=== PATIENT | male | born 1940 | race Caucasian/White ===

== ENCOUNTER 2016-11-20 13:20 | Emergency (ER) | payer MEDICARE, BC ==
[2016-11-20 15:59] VITALS: BP 116/70
--- NOTE | 2016-11-20 16:12 | UC ---
Lower Extremity/Ankle HPI - HPI Summary HPI Summary: complaint of right heel pain feel like he stepped on a piece of glass or a splinter can see a black dot omn jhis foot started approx 1 month ago sometimes catches it on a rug intermittent pain 2x day non radiating aching pain in heel - History of Current Complaint Chief Complaint: UCGeneralIllness Stated Complaint: RIGHT FOOT COMPLAINT Time Seen by Provider: 11/20/16 16:06 - Allergies/Home Medications Allergies/Adverse Reactions: Allergies Allergy/AdvReac Type Severity Reaction Status Date / Time No Known Allergies Allergy Verified 11/20/16 15:59 PMH/Surg Hx/FS Hx/Imm Hx Previously Healthy: Yes Endocrine History Of: Denies: Diabetes, Thyroid Disease Cardiovascular History Of: Reports: Cardiac Disorders - afib, Hypertension Denies: Pacemaker/ICD Respiratory History Of: Denies: COPD, Asthma GI/ History Of: Denies: Ulcer, Renal Disease Other History Of: Negative For: Anticoagulant Therapy - Surgical History Surgical History: Yes Surgery Procedure, Year, and Place: karely we[facility] rt knee replacement,2004 needed I+D for infection. left ankle repair after fracture; 2013 orthopedic. [facility] SURGERY LUMBAR DECOMPRESSION L2-L5 07/19 - Family History Known Family History: Positive: Hypertension - father Negative: Cardiac Disease, Diabetes - Social History Occupation: Retired Alcohol Use: Rare Alcohol Amount: 1 DRINK/MONTH Substance Use Type: None Smoking Status (MU): Former Smoker When Did the Patient Quit Smoking/Using Tobacco: 05/05/1977 - Immunization History Most Recent Tetanus Shot: up to date Review of Systems Constitutional: Negative Skin: Other - foreign object in right heel Eyes: Negative ENT: Negative Respiratory: Negative Cardiovascular: Negative Gastrointestinal: Negative Genitourinary: Negative Motor: Negative Neurovascular: Negative Musculoskeletal: Negative Neurological: Negative Psychological: Negative All Other Systems Reviewed And Are Negative: Yes Physical Exam Triage Information Reviewed: Yes Appearance: No Pain Distress, Well-Nourished, Thin Vital Signs: Initial Vital Signs Temp 98.8 F 11/20/16 15:51 Pulse 78 11/20/16 15:51 Resp 20 11/20/16 15:51 BP 116/70 11/20/16 15:51 Eyes: Positive: Conjunctiva Clear ENT: Positive: Pharynx normal, TMs normal. Negative: Nasal congestion Neck: Positive: No Lymphadenopathy Respiratory: Positive: Lungs clear, Normal breath sounds, No respiratory distress Cardiovascular: Positive: RRR, No Murmur Abdomen Description: Positive: Nontender, Soft Bowel Sounds: Positive: Present Musculoskeletal: Positive: No Edema Neurological: Positive: Alert Psychological Exam: Normal Skin: Positive: Other - right heel - small splinter in foot approx 3 mm- removed with splinter foceps Lower Extremity Course/Dx - Course Course Of Treatment: exam completed. splinter removed with splinter forceps pt tolerated well. no antibiotic needed as no s/s of cellulitis. followup with PCP as needed - Differential Dx/Diagnosis Differential Diagnosis/HQI/PQRI: Other Provider Diagnoses: right heel foreign object Discharge - Discharge Plan Condition: Stable Disposition: HOME Patient Education Materials: Soft Tissue Foreign Body (ED) Referrals: Klever Coats DO [Primary Care Provider] - Additional Instructions: keep foot clean and dry replace bandage everyday and apply bacitracin if you notice any increase in pain, swelling, redness please followup with your primary care provider for followup treatment.
== END 2016-11-20 16:31 | disposition home or self-care (01) ==
LOC: UCCORT 13:20
DX: S90.851A Superficial foreign body, right foot, initial encounter (principal); W45.8XXA Other foreign body or object entering through skin, initial encounter; Y93.9 Activity, unspecified; Y92.9 Unspecified place or not applicable; Z87.891 Personal history of nicotine dependence
CPT/HCPCS: 99211; G0463

== ENCOUNTER 2016-12-09 15:34 | Emergency (ER) | payer MEDICARE, BC ==
[2016-12-09 18:43] VITALS: BP 142/81
--- NOTE | 2016-12-09 19:23 | UC ---
Ear Complaint HPI - HPI Summary HPI Summary: pt c/o right ear pain that is intermittent. began 2-3 days ago. - History of Current Complaint Chief Complaint: UCEar Stated Complaint: EAR PAIN Time Seen by Provider: 12/09/16 18:42 Hx Obtained From: Patient Onset/Duration: Sudden Onset, Lasting Days Severity Initially: Mild Severity Currently: Mild - Allergies/Home Medications Allergies/Adverse Reactions: Allergies Allergy/AdvReac Type Severity Reaction Status Date / Time No Known Allergies Allergy Verified 12/09/16 18:44 Home Medications: Home Medications Acetaminophen TAB* [Tylenol TAB*] 650 mg PO Q4H PRN 12/09/16 [History Confirmed 12/09/16] PMH/Surg Hx/FS Hx/Imm Hx Previously Healthy: Yes Endocrine History Of: Denies: Diabetes, Thyroid Disease Cardiovascular History Of: Reports: Cardiac Disorders - afib, Hypertension Denies: Pacemaker/ICD Respiratory History Of: Denies: COPD, Asthma GI/ History Of: Denies: Ulcer, Renal Disease Other History Of: Negative For: Anticoagulant Therapy - Surgical History Surgical History: Yes Surgery Procedure, Year, and Place: [facility] rt knee replacement,2004 needed I+D for infection. left ankle repair after fracture; 2013 orthopedic. [facility] SURGERY LUMBAR DECOMPRESSION L2-L5 07/19 - Family History Known Family History: Positive: Hypertension - father Negative: Cardiac Disease, Diabetes - Social History Lives: Alone Alcohol Use: Rare Alcohol Amount: 1 DRINK/MONTH Substance Use Type: None Smoking Status (MU): Former Smoker When Did the Patient Quit Smoking/Using Tobacco: 05/05/1977 - Immunization History Most Recent Tetanus Shot: up to date Review of Systems Constitutional: Negative Skin: Negative Eyes: Negative ENT: Ear Ache - right Respiratory: Negative Cardiovascular: Negative Gastrointestinal: Negative Genitourinary: Negative Motor: Negative Neurovascular: Negative Musculoskeletal: Negative Neurological: Negative Psychological: Negative All Other Systems Reviewed And Are Negative: Yes Physical Exam Triage Information Reviewed: Yes Vital Signs: Initial Vital Signs Temp 98.9 F 12/09/16 18:39 Pulse 71 12/09/16 18:39 Resp 18 12/09/16 18:39 BP 142/81 12/09/16 18:39 Pulse Ox 98 12/09/16 18:39 Vital Signs Reviewed: Yes Eye Exam: Normal ENT Exam: Other ENT: Positive: Other: - left ear cerumen impaction Neck exam: Normal Respiratory Exam: Normal Cardiovascular Exam: Normal Musculoskeletal Exam: Normal Neurological Exam: Normal Psychological Exam: Normal Skin Exam: Normal Ear Complaint Course/Dx - Differential Dx/Diagnosis Differential Diagnosis/HQI/PQRI: Cerumen Impaction, Other Provider Diagnoses: right ear ache. left ear cerumen impaction Discharge - Discharge Plan Condition: Stable Disposition: HOME Patient Education Materials: Cerumen Impaction (ED), Earache (ED) Referrals: Klever Coats DO [Primary Care Provider] -
== END 2016-12-09 19:20 | disposition home or self-care (01) ==
LOC: UCCORT 15:34
DX: H92.01 Otalgia, right ear (principal); H61.22 Impacted cerumen, left ear; I48.91 Unspecified atrial fibrillation; I10 Essential (primary) hypertension; Z87.891 Personal history of nicotine dependence; Z96.651 Presence of right artificial knee joint
CPT/HCPCS: 99211; G0463

== ENCOUNTER 2017-07-22 11:42 | Emergency (ER) | payer MEDICARE, OTHER, BC ==
--- NOTE | 2017-07-22 14:01 | UC ---
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 he also is having trouble beding fingers on the left hand from the fall. is taking tylenol #3 - History of Current Complaint Chief Complaint: UCUpperExtremity Stated Complaint: KNEE/RIGHT SHOULDER PAIN-FELL FRI Time Seen by Provider: 07/22/17 13:27 Hx Obtained From: Patient Onset/Duration: Sudden Onset, Lasting Days - 1 Timing: Constant Onset Severity: Moderate Current Severity: Moderate - Allergy/Home Medications Allergies/Adverse Reactions: Allergies Allergy/AdvReac Type Severity Reaction Status Date / Time No Known Allergies Allergy Verified 07/22/17 13:17 PMH/Surg Hx/FS Hx/Imm Hx Previously Healthy: Yes Other History Of: Negative For: Anticoagulant Therapy - Surgical History Surgical History: Yes Surgery Procedure, Year, and Place: karely pr rt knee replacement,2004 needed I+D for infection. left ankle repair after fracture; 2013 orthopedic. [facility] SURGERY LUMBAR DECOMPRESSION L2-L5 07/19. cardiac ablation - Family History Known Family History: Positive: Hypertension - father Negative: Cardiac Disease, Diabetes - Social History Alcohol Use: None Alcohol Amount: 1 DRINK/MONTH Substance Use Type: None Smoking Status (MU): Former Smoker Type: Cigarettes When Did the Patient Quit Smoking/Using Tobacco: 05/05/1977 - Immunization History Most Recent Tetanus Shot: up to date Review of Systems Constitutional: Negative Skin: Other - musltiple abraisons Eyes: Negative ENT: Other - nose pain Respiratory: Negative Cardiovascular: Negative Gastrointestinal: Negative Genitourinary: Negative Motor: Negative Neurovascular: Negative Musculoskeletal: Arthralgia, Decreased ROM, Myalgia Neurological: Negative Psychological: Negative Is Patient Immunocompromised?: No All Other Systems Reviewed And Are Negative: Yes Physical Exam Triage Information Reviewed: Yes Appearance: Well-Appearing, Well-Nourished, Pain Distress Vital Signs: Initial Vital Signs Temp 98.3 F 07/22/17 13:19 Pulse 87 07/22/17 13:19 Resp 16 07/22/17 13:19 BP 105/65 07/22/17 13:19 Pulse Ox 95 07/22/17 13:19 Vital Signs Reviewed: Yes Eye Exam: Normal Eyes: Positive: Conjunctiva Clear ENT: Positive: Pharynx normal, Nasal congestion Dental Exam: Normal Neck exam: Normal Neck: Positive: Supple, Nontender, No Lymphadenopathy Respiratory Exam: Normal Respiratory: Positive: Chest non-tender, Lungs clear, Normal breath sounds Cardiovascular Exam: Normal Cardiovascular: Positive: RRR, No Murmur, Pulses Normal Abdominal Exam: Normal Abdomen Description: Positive: Nontender, No Organomegaly, Soft Bowel Sounds: Positive: Present Musculoskeletal: Positive: Strength Limited @ - in right left and left hand, ROM Limited @ - in right shoulder, Edema @ - around the bridge of the nose, Other: - mid right femur pain, facial pain Neurological Exam: Normal Psychological Exam: Normal Skin Exam: Normal Course/Dx - Course Course Of Treatment: hx obtained, exam performed ,meds reviewed, xrays obtained , patient has taken pain med prior to arrival. - Differential Dx - Multi-Symptom Provider Diagnoses: facial abrasions. left middle finger pain. right thigh pain. right shoulder contusion Discharge - Discharge Plan Condition: Stable Disposition: HOME Patient Education Materials: Shoulder Pain (ED), Finger Fracture (ED) Additional Instructions: 1.[place]oulder, - pain medications, heat the shoulder, work through the Range of motion 2. Finger - keep the splint on for the next 2 weeks, at this point I am calling it a chip fracture of the distal joint, if the radiologist reads it differently I will let you know 3. Femur, o sign of fracture, heat to the area and stretch 4. Face xray did not show sign of fracture, neosporin to the abrasions on the face, follow up if pain persists.
[2017-07-22 15:19] VITALS: BP 103/68
--- NOTE | 2017-07-22 16:34 | RAD ---
Indication: RIGHT lower extremity pain post fall. RIGHT knee replacement. Comparison: No relevant prior exams available on the [facility] for comparison. Technique: AP and lateral views RIGHT femur. Report: RIGHT knee prosthesis in place without evidence for periprosthetic fracture. Mild periprosthetic lucency at the tibial plateau interface with the prosthesis which appears chronic. No compelling evidence for acute prosthesis loosening. Negative for femur fracture. Peripheral vascular calcifications. Unremarkable soft tissue contours. IMPRESSION: No evidence for RIGHT femur fracture. Periprosthetic lucency at the interface of the tibial component of the knee prosthesis is likely chronic. Correlation with prior exams suggested to assess for stability. No relevant prior exams are available on the [facility].
--- NOTE | 2017-07-22 16:36 | RAD ---
Indication: RIGHT shoulder pain post fall. Comparison: January 07, 2013 Technique: AP radiograph of the RIGHT shoulder. Report: Normal acromioclavicular and glenohumeral joint alignment in the AP projection. Large inferior acromial bone spur and chronic remodeling favoring chronic rotator cuff tear. Osteoarthritis at the acromioclavicular and glenohumeral joints. No fracture evident. IMPRESSION: Limited single view RIGHT shoulder exam remarkable for acromioclavicular and glenohumeral joint osteoarthritis and stigmata of chronic rotator cuff tear. No fracture or gross articular malalignment evident in the AP projection.
--- NOTE | 2017-07-22 16:38 | RAD ---
Indication: Trauma to the nose; fall. Comparison: No relevant prior exams available on the [facility] PACS for comparison. Technique: AP, Dejesus, lateral, SMV images of the facial bones. Report: The orbital margins and zygomatic arches appear intact. The tip of the nasal bones is not included within the [id number] on the lateral image limiting assessment. The visualized nasal bones appear intact. Normally located senile morphology mandible without evidence for fracture. Normally aerated paranasal sinuses. Rightward deviation of the nasal septum. IMPRESSION: Limited exam without visualized facial fracture.
--- NOTE | 2017-07-22 16:42 | RAD ---
Indication: LEFT hand pain post fall. Comparison: January 30, 2007 Technique: AP and lateral views LEFT hand. Report: Negative for fracture or dislocation. 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 Severe joint space narrowing, osteophytosis, and subchondral sclerosis and cystic change at the basal joint of the thumb including the articulation with the radial margin of the base of the second metacarpal. Mild soft tissue swelling at the wrist and hand. IMPRESSION: Negative for fracture. Osteoarthritis with significant progression over the 2006 exam.
== END 2017-07-22 16:13 | disposition home or self-care (01) ==
LOC: UCCORT 11:42
DX: S00.81XA Abrasion of other part of head, initial encounter (principal); S40.011A Contusion of right shoulder, initial encounter; W01.0XXA Fall on same level from slipping, tripping and stumbling without subsequent striking against object, initial encounter; Y93.01 Activity, walking, marching and hiking; Y92.89 Other specified places as the place of occurrence of the external cause; M79.651 Pain in right thigh; M79.645 Pain in left finger(s); Z96.651 Presence of right artificial knee joint; Z87.891 Personal history of nicotine dependence
CPT/HCPCS: 70150; 99213; G0463

== ENCOUNTER 2017-12-27 19:51 | Inpatient (IN) | payer MEDICARE, BC ==
--- NOTE | 2017-12-27 21:20 | RAD ---
INDICATION: Knee pain COMPARISON: Right femur July 22, 2017 TECHNIQUE: AP, lateral, and sunrise were obtained. FINDINGS: There is right knee arthroplasty. Both femoral and tibial components appear well seated. There is no evidence of a joint effusion. There are vascular calcifications. IMPRESSION: RIGHT KNEE ARTHROPLASTY.
[2017-12-27] MEDS ORDERED: Morphine INJ* 4 MG/ML 1 ML SYRINGE (NEW SYRINGE VERSION) IM ONE ×2 (22:11→23:31)
[2017-12-27] MEDS ORDERED: Ondansetron ODT TAB* 4 MG PO ONE (22:12)
[2017-12-28 02:06] LABS: ABS Basophils 0 10^3/ul (0-0.2); ABS Eosinophils 0.2 10^3/ul (0-0.6); ABS Lymphocytes 1.9 10^3/ul (1.0-4.8); ABS Nucleated RBC 0 10^3/ul; Eosinophil % 1.5 % (0-6); Hematocrit 43 % (42-52); Hemoglobin 14.4 g/dl (14.0-18.0); Mean Corpuscular HGB Conc 34 g/dl (31-36); Mean Corpuscular Hemoglobin 30 pg (27-31); Mean Corpuscular Volume 91 fL (80-94); Mean Platelet Volume 9 um3 (7.4-10.4); Nucleated Red Blood Cells % 0; Platelet Count 128 10^3/ul (150-450); Red Blood Count 4.72 10^6/ul (4.0-5.4); Red Cell Distribution Width 13 % (10.5-15); White Blood Count 10.2 10^3/ul (3.5-10.8)
[2017-12-28 02:20] LABS: EGFR Non-African American 95.4 (>60)
[2017-12-28] MEDS ORDERED: Ondansetron INJ* 2 MG/ML VIAL IV PRN (02:23)
[2017-12-28] MEDS ORDERED: Albuterol 2.5 MG/3 ML NEB.SOL* (0.083%) INH PRN (02:23)
[2017-12-28] MEDS ORDERED: Melatonin (NF) 3 MG TAB PO PRN (02:23)
[2017-12-28] MEDS ORDERED: fentaNYL* 50 MCG/ML 2 ML VIAL (100 MCG VIAL) IV SLOW PU PRN (02:23)
--- NOTE | 2017-12-28 02:25 | HP ---
H&P (Free Text) History and Physical: PCP: Anton Rodriguez MD Date/Time: 12/28/2017214 CC: intractable R knee pain s/p fall HPI: Mr Ernandez is a 77YO male HX R TKA 2005 & AFIB on rivaroxaban who reports standing in his kitchen putting things away when he suddenly felt a "click" in his R knee which then gave out causing him to fall. He was unable to stand and crawled to a phone to call his son who in turn called EMS. He denies other prodromal symptoms, specifically chest pain, SOB, palpitations, light-headedness , or other issues. His pain has not been able to be adequately controlled in the ED to allow him to ambulate and be discharged. XRY R knee is negative for acute finding. PMedHx HTN AFIB Ambulatory Orders Losartan TAB* [Cozaar TAB*] 50 mg PO DAILY 06/11/15 Metoprolol Succinate XL TAB* [Toprol XL TAB*] 50 mg PO BID 06/11/15 Rivaroxaban TAB(*) [Xarelto (NF)] 20 mg PO DAILY 07/29/15 Acetaminop/Codeine 30 MG TAB* [Tylenol/Codeine 30 MG TAB*] 1 tab PO Q4H PRN MDD 6 07/12/17 Allergies No Known Allergies Allergy (Verified 10/11/17 10:53) PSurgHx tonsillectomy L spine surgery R TKA SocHx: quit smoking 1976, 2 alcoholic drinks monthly, no recreational drugs; lives alone; retired [employer] architect; full code status FamHx: Father passed at 65 2nd ruptured AAA. Brother passed at 33 2nd Hodgkin's lymphoma. Sister passed at 54 2nd breast CA. ROS: as above, otherwise reviewed and all were negative vitals: Vital Signs Temp 37.3 C 12/28/17 03:51 Pulse 64 12/28/17 03:51 Resp 18 12/28/17 04:07 BP 159/79 12/28/17 03:51 Pulse Ox 92 12/28/17 03:51 Intake & Output 12/27/17 12/27/17 12/28/17 11:59 23:59 11:59 Weight 99.79 kg 102.467 kg Constitutional: NAD, normally developed, obese white male HEENM: atraumatic; sclera/conjunctiva: anicteric/clear; hearing: clinically intact; oropharynx: clear, mucosa moist Neck: soft tissue: non-tender; thyroid: normal Pulmonary: clear to auscultation bilaterally, good aeration, no accessory muscle use CV: RR/RR, normal S1S2, no carotid bruit, no jugular venous distention, 2+ B DP/ PT, no edema Abdominal: soft, non-distended, non-tender, no rebound/guarding/rigidity, normoactive bowel sounds, no hepatosplenomegaly or masses, no costovertebral angle tenderness Musculoskeletal: general: grossly intact; gait: non-ambulatory 2nd pain; R knee with minimal active ROM 2nd pain, passive ROM is better with ability to achieve full extension but only 90 degrees of flexion, the R knee joint is swollen without warmth or erythema Integumental: normal appearance and texture of exposed skin Psychiatric orientation: AA&O to PPS affect: calm mood: cooperative/pleasant eye contact: good content: reliable responses: timely insight: good Testing: Lab Results 12/28/17 12/28/17 Range/Units 01:55 01:55 WBC 10.2 (3.5-10.8) 10^3/ul RBC 4.72 (4.0-5.4) 10^6/ul Hgb 14.4 (14.0-18.0) g/dl Hct 43 (42-52) % MCV 91 (80-94) fL MCH 30 (27-31) pg MCHC 34 (31-36) g/dl RDW 13 (10.5-15) % Plt Count 128 L (150-450) 10^3/ul MPV 9 (7.4-10.4) um3 Neut % (Auto) 68.7 (38-83) % Lymph % (Auto) 19.0 L (25-47) % [place] % (Auto) 10.3 H (0-7) % Eos % (Auto) 1.5 (0-6) % Baso % (Auto) 0.5 (0-2) % Absolute Neuts (auto) 7.0 (1.5-7.7) 10^3/ul Absolute Lymphs (auto) 1.9 (1.0-4.8) 10^3/ul Absolute Monos (auto) 1.0 H (0-0.8) 10^3/ul Absolute Eos (auto) 0.2 (0-0.6) 10^3/ul Absolute Basos (auto) 0 (0-0.2) 10^3/ul Absolute Nucleated RBC 0 10^3/ul Nucleated RBC % 0 Sodium 136 (133-145) mmol/L Potassium 4.1 (3.5-5.0) mmol/L Chloride 101 (101-111) mmol/L Carbon Dioxide 31 (22-32) mmol/L Anion Gap 4 (2-11) mmol/L BUN 13 (6-24) mg/dL Creatinine 0.79 (0.67-1.17) mg/dL Est GFR ( Amer) 122.6 (>60) Est GFR (Non-Af Amer) 95.4 (>60) BUN/Creatinine Ratio 16.5 (8-20) Glucose 97 (70-100) mg/dL Calcium 9.1 (8.6-10.3) mg/dL Total Bilirubin 1.00 (0.2-1.0) mg/dL AST 23 (13-39) U/L ALT 21 (7-52) U/L Alkaline Phosphatase 49 (34-104) U/L Total Protein 6.7 (6.4-8.9) g/dL Albumin 3.7 (3.2-5.2) g/dL Globulin 3.0 (2-4) g/dL Albumin/Globulin Ratio 1.2 (1-3) XRY R knee, personally reviewed: FINDINGS: There is right knee arthroplasty. Both femoral and tibial components appear well seated. There is no evidence of a joint effusion. There are vascular calcifications. Impression: 77M presenting with traumatic R knee pain & swelling in the setting of rivaroxaban for AFIB, suspect acute hemarthosis DIAGNOSIS & PLAN Primary intractable R knee pain : suspect acute hemarthrosis : pain control : recommend consulting Malcolm Saleem MD orthopedic surgery who performed the TKA in AM : PT evaluation : supportive care Secondary HTN : continue losartan & metoprolol AFIB : continue rivaroxaban & metoprolol Admission Rational: observation for intractable knee pain DVTp: continue rivaroxaban Code Status: full HCP: children
[2017-12-28] MEDS ORDERED: NS 0.9% 1000 ML* 1,000 ML IV SCH (02:30)
--- NOTE | 2017-12-28 03:12 | ED ---
Houston Mckeon Angela, scribed for Nilay Cesar on 12/27/17 at 2018 . Adult Trauma - HPI Summary HPI Summary: This pt is a 77 y/o male presenting to [facility] via EMS c/o right knee pain. Pt reports he was doing dishes today when he heard a "pop" in his right knee and subsequently he fell. Denies head strike or LOC. Pt states that he had a total right knee replacement in [address] Saleem. He uses a cane at baseline. Pt has chronic back pain for which he goes to pain management. - History of Current Complaint Stated Complaint: FALL/RT KNEE INJURY Time Seen by Provider: 12/27/17 20:07 Hx Obtained From: Patient Mechanism of Injury: Fall Ambulatory at the Scene: Yes Loss of Consciousness: no loss of consciousness Onset/Duration: Started Hours Ago, Traumatic, Still Present Current Severity: Moderate Location: Other - right knee Aggravating Factor(s): Movement Alleviating Factor(s): Rest Associated Signs & Symptoms: Positive: Negative - Allergy/Home Medications Allergies/Adverse Reactions: Allergies Allergy/AdvReac Type Severity Reaction Status Date / Time No Known Allergies Allergy Verified 10/11/17 10:53 PMH/Surg Hx/FS Hx/Imm Hx Endocrine/Hematology History: Denies: Hx Anticoagulant Therapy, Hx Diabetes, Hx Thyroid Disease Cardiovascular History: Reports: Hx Hypertension, Hx Valvular Heart Disease, Other Cardiovascular Problems/Disorders - on xarelto Denies: Hx Pacemaker/ICD Respiratory History: Denies: Hx Asthma, Hx Chronic Obstructive Pulmonary Disease (COPD) GI History: Reports: Other GI Disorders - constipation Denies: Hx Ulcer History: Denies: Hx Dialysis, Hx Renal Disease Musculoskeletal History: Reports: Hx Arthritis, Hx Back Problems - spinal stenosis, Other Musculoskeletal History - right knee infection/complications after replacement Denies: Hx Gout, Hx Osteoporosis Sensory History: Reports: Hx Contacts or Glasses Denies: Hx Hearing Aid Comment Only: Hx Cataracts - bilaterally removed Opthamlomology History: Reports: Hx Contacts or Glasses Comment Only: Hx Cataracts - bilaterally removed Psychiatric History: Denies: Hx Panic Disorder - Cancer History Hx Chemotherapy: No Hx Radiation Therapy: No - Surgical History Surgery Procedure, Year, and Place: karely weber rt knee replacement,2004 needed I+D for infection. left ankle repair after fracture; 2013 orthopedic. [facility] SURGERY LUMBAR DECOMPRESSION L2-L5 9/14. 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 Denies: Hx Clostridium Difficile, Hx Hepatitis, Hx Human Immunodeficiency Virus (HIV), Hx Shingles, Hx Tuberculosis, Hx Known/Suspected VRE, Hx Known/ Suspected VRSA, History Other Infectious Disease - Family History Known Family History: Positive: Hypertension - father Negative: Cardiac Disease, Diabetes - Social History Alcohol Use: Weekly Alcohol Amount: 1 DRINK/MONTH Substance Use Type: Reports: None Smoking Status (MU): Former Smoker Type: Cigarettes Review of Systems Negative: Fever, Chills Eyes: Negative ENT: Negative Cardiovascular: Negative Respiratory: Negative Musculoskeletal: Other - right knee pain Negative: Headache All Other Systems Reviewed And Are Negative: Yes Physical Exam - Summary Physical Exam Summary: Appearance: Well appearing, no pain distress Skin: warm, dry, reflects adequate perfusion Head/face: normal Eyes: EOMI, PER ENT: normal Neck: supple, nontender Respiratory: CTA, breath sounds present Cardiovascular: RRR, pulses symmetrical Abdomen: nontender, soft Bowel: present Musculoskeletal: Tenderness and swelling of the right knee. There is restricted ROM. Healed scar on the anterior aspect of the right knee. No neurovascular deficits on right knee. Neuro: normal, sensory motor intact, A&Ox3. Triage Information Reviewed: Yes Vital Signs On Initial Exam: Initial Vitals Temp Pulse Resp BP Pulse Ox 98.4 F 55 16 154/87 94 12/27/17 20:15 12/27/17 20:15 12/27/17 20:15 12/27/17 20:15 12/27/17 20:15 Vital Signs Reviewed: Yes Diagnostics - Vital Signs Vital Signs Temp Pulse Resp BP Pulse Ox 12/27/17 23:40 16 12/27/17 22:29 16 12/27/17 20:30 55 22 148/82 93 12/27/17 20:15 98.4 F 58 19 170/90 96 - Laboratory Lab Results: Lab Results 12/28/17 12/28/17 Range/Units 01:55 01:55 WBC 10.2 (3.5-10.8) 10^3/ul RBC 4.72 (4.0-5.4) 10^6/ul Hgb 14.4 (14.0-18.0) g/dl Hct 43 (42-52) % MCV 91 (80-94) fL MCH 30 (27-31) pg MCHC 34 (31-36) g/dl RDW 13 (10.5-15) % Plt Count 128 L (150-450) 10^3/ul MPV 9 (7.4-10.4) um3 Neut % (Auto) 68.7 (38-83) % Lymph % (Auto) 19.0 L (25-47) % [place] % (Auto) 10.3 H (0-7) % Eos % (Auto) 1.5 (0-6) % Baso % (Auto) 0.5 (0-2) % Absolute Neuts (auto) 7.0 (1.5-7.7) 10^3/ul Absolute Lymphs (auto) 1.9 (1.0-4.8) 10^3/ul Absolute Monos (auto) 1.0 H (0-0.8) 10^3/ul Absolute Eos (auto) 0.2 (0-0.6) 10^3/ul Absolute Basos (auto) 0 (0-0.2) 10^3/ul Absolute Nucleated RBC 0 10^3/ul Nucleated RBC % 0 Sodium 136 (133-145) mmol/L Potassium 4.1 (3.5-5.0) mmol/L Chloride 101 (101-111) mmol/L Carbon Dioxide 31 (22-32) mmol/L Anion Gap 4 (2-11) mmol/L BUN 13 (6-24) mg/dL Creatinine 0.79 (0.67-1.17) mg/dL Est GFR ( Amer) 122.6 (>60) Est GFR (Non-Af Amer) 95.4 (>60) BUN/Creatinine Ratio 16.5 (8-20) Glucose 97 (70-100) mg/dL Calcium 9.1 (8.6-10.3) mg/dL Total Bilirubin 1.00 (0.2-1.0) mg/dL AST 23 (13-39) U/L ALT 21 (7-52) U/L Alkaline Phosphatase 49 (34-104) U/L Total Protein 6.7 (6.4-8.9) g/dL Albumin 3.7 (3.2-5.2) g/dL Globulin 3.0 (2-4) g/dL Albumin/Globulin Ratio 1.2 (1-3) Result Diagrams: 12/28/17 01:55 12/28/17 01:55 Lab Statement: Any lab studies that have been ordered have been reviewed, and results considered in the medical decision making process. - Radiology Right knee XR Xray Interpretation: No Acute Changes - IMPRESSION: Right knee arthroplasty. Dr. Cesar has reviewed this radiology report. Radiology Interpretation Completed By: Radiologist Re-Evaluation - Re-Evaluation First Eval Re-Evaluation Time: 21:54 Comment: I reviewed the knee XR with the pt. Pt states he is unable to walk. He reports he lives alone and has stairs at home. Will consult hospitalist. Adult Trauma Course/Dx - Course Course Of Treatment: Pt is a 77 y/o male, with right knee total replacement, who presents with right knee pain today and a fall due to his knee giving out. Right knee XR was obtained. XR is negative for fractures or dislocation. On re- evaluation, pt states he is unable to walk. He reports he lives alone and has stairs at home. Will consult hospitalist. In the ED course the pt was given morphine and zofran. Pt failed his road test after medications. I discussed pt care with Dr. Hassan, hospitalist, who has agreed to admit the pt. - Diagnoses Differential Diagnosis/HQI/PQRI: Positive: Contusion(s), Fracture, Hematoma(s), Sprain Provider Diagnoses: Right knee pain, Unable to ambulate, Fall - Physician Notifications Discussed Care Of Patient With: Guy Hassan Time Discussed With Above Provider: 01:32 Instructed by Provider To: Other - I discussed pt care with Dr. Hassan, hospitalist, who has agreed to admit the pt. Discharge - Discharge Plan Condition: Stable Disposition: ADMITTED TO [facility] The documentation as recorded by the Houston sagastume Angela accurately reflects the service I personally performed and the decisions made by me, Nilay Cesar.
[2017-12-28] MEDS: oxyCODONE TAB* 5 MG TAB PO PRN ×3 (04:07→23:58)
[2017-12-28] MEDS: CMCS Melatonin (NF) 3 MG TAB PO PRN (04:08)
[2017-12-28] MEDS: Omeprazole CAP* 20 MG PO SCH (04:25)
[2017-12-28] MEDS: Rivaroxaban TAB(*) 20 MG TAB PO SCH (08:35)
[2017-12-28] MEDS: Docusate CAP* 100 MG PO SCH ×2 (08:35→22:05)
--- NOTE | 2017-12-28 11:08 | PN ---
Subjective Date of Service: 12/28/17 Interval History: Patient seen and examined. PT at bedside for evaluation. Patient unable to bear weight, states he is having extreme spasms running down both legs with accompanying paresthesias. No complaint of pain, however, patient states his legs give out and he is too weak to stand. Has hx of back surgery ( decompression with no instrumentation) in 2012 but noticed that weakness has been substantial and his legs keep buckling, not just on the right/arthroplasty side. Feels this is what contributed to his fall yesterday. Denies changes in bladder or bowel habits, no incontinence. Denies SOB, no n/v. Objective Active Medications: Albuterol (Ventolin 2.5 Mg/3 Ml Neb.Leanna*) 2.5 mg INH Q2H PRN PRN Reason: SOB/WHEEZING Docusate Sodium (Colace Cap*) 200 mg PO BID [facility] Last Admin: 12/28/17 08:35 Dose: 200 mg Fentanyl Citrate (Fentanyl*) 25 mcg IV SLOW PU Q2H PRN PRN Reason: PAIN Sodium Chloride (Ns 0.9% 1000 Ml*) 1,000 mls @ 75 mls/hr IV PER RATE [facility] Last Admin: 12/28/17 04:06 Dose: 75 mls/hr Melatonin (Melatonin (Nf)) 3 mg PO BEDTIME PRN; Protocol PRN Reason: Sleep Last Admin: 12/28/17 04:08 Dose: 3 mg Omeprazole (Prilosec Cap*) 20 mg PO DAILY@0600 [facility] Last Admin: 12/28/17 04:25 Dose: 20 mg Ondansetron HCl (Zofran Inj*) 4 mg IV Q6H PRN PRN Reason: NAUSEA Oxycodone HCl (Roxycodone Tab*) 10 mg PO Q4H PRN PRN Reason: PAIN Last Admin: 12/28/17 04:07 Dose: 10 mg Rivaroxaban (Xarelto(*)) 20 mg PO DAILY [facility] Last Admin: 12/28/17 08:35 Dose: 20 mg Tramadol HCl (Ultram*) 50 mg PO Q6H PRN PRN Reason: PAIN Vital Signs - 8 hr 12/28/17 12/28/17 12/28/17 03:13 03:45 03:51 Temperature 97.9 F 99.2 F 99.2 F Pulse Rate 63 64 64 Respiratory 18 17 17 Rate Blood Pressure 156/82 159/79 159/79 (mmHg) O2 Sat by Pulse 97 92 92 Oximetry 12/28/17 12/28/17 12/28/17 04:07 07:19 08:29 Temperature 98.5 F Pulse Rate 70 Respiratory 18 20 16 Rate Blood Pressure 113/54 (mmHg) O2 Sat by Pulse 90 Oximetry Oxygen Devices in Use Now: None Appearance: Alert, NAD Ears/Nose/Mouth/Throat: NL Teeth, Lips, Gums, Mucous Membranes Moist Neck: NL Appearance and Movements; NL JVP, Trachea Midline Respiratory: Symmetrical Chest Expansion and Respiratory Effort, Clear to Auscultation Cardiovascular: NL Sounds; No Murmurs; No JVD Abdominal: NL Sounds; No Tenderness; No Distention Skin: - - edema right knee at baseline, no erythema Neurological: Alert and Oriented x 3, - - RLE quad weakness, bilateral LE general weakness Nutrition: Taking PO's Result Diagrams: 12/28/17 01:55 12/28/17 01:55 Additional Lab and Data: Lab Results 12/28/17 12/28/17 Range/Units 01:55 01:55 WBC 10.2 (3.5-10.8) 10^3/ul RBC 4.72 (4.0-5.4) 10^6/ul Hgb 14.4 (14.0-18.0) g/dl Hct 43 (42-52) % MCV 91 (80-94) fL MCH 30 (27-31) pg MCHC 34 (31-36) g/dl RDW 13 (10.5-15) % Plt Count 128 L (150-450) 10^3/ul MPV 9 (7.4-10.4) um3 Neut % (Auto) 68.7 (38-83) % Lymph % (Auto) 19.0 L (25-47) % [place] % (Auto) 10.3 H (0-7) % Eos % (Auto) 1.5 (0-6) % Baso % (Auto) 0.5 (0-2) % Absolute Neuts (auto) 7.0 (1.5-7.7) 10^3/ul Absolute Lymphs (auto) 1.9 (1.0-4.8) 10^3/ul Absolute Monos (auto) 1.0 H (0-0.8) 10^3/ul Absolute Eos (auto) 0.2 (0-0.6) 10^3/ul Absolute Basos (auto) 0 (0-0.2) 10^3/ul Absolute Nucleated RBC 0 10^3/ul Nucleated RBC % 0 Sodium 136 (133-145) mmol/L Potassium 4.1 (3.5-5.0) mmol/L Chloride 101 (101-111) mmol/L Carbon Dioxide 31 (22-32) mmol/L Anion Gap 4 (2-11) mmol/L BUN 13 (6-24) mg/dL Creatinine 0.79 (0.67-1.17) mg/dL Est GFR ( Amer) 122.6 (>60) Est GFR (Non-Af Amer) 95.4 (>60) BUN/Creatinine Ratio 16.5 (8-20) Glucose 97 (70-100) mg/dL Calcium 9.1 (8.6-10.3) mg/dL Total Bilirubin 1.00 (0.2-1.0) mg/dL AST 23 (13-39) U/L ALT 21 (7-52) U/L Alkaline Phosphatase 49 (34-104) U/L Total Protein 6.7 (6.4-8.9) g/dL Albumin 3.7 (3.2-5.2) g/dL Globulin 3.0 (2-4) g/dL Albumin/Globulin Ratio 1.2 (1-3) Diagnostic Imaging: Patient Name: FUAD ESTRADA Medical Record#: [id number] Ordering Physician: Nilay Cesar MD Acct.#: [id number] : 1940 Age: 77 Sex: M Location: EMERGENCY DEPARTMENT Exam Date: 12/27/172034 ADM Status: REG ER Order Information: KNEE RIGHT 4+ VWS Accession Number: [id number] CPT: 62882 INDICATION: Knee pain COMPARISON: Right femur July 22, 2017 TECHNIQUE: AP, lateral, and sunrise were obtained. FINDINGS: There is right knee arthroplasty. Both femoral and tibial components appear well seated. There is no evidence of a joint effusion. There are vascular calcifications. IMPRESSION: RIGHT KNEE ARTHROPLASTY. <Electronically signed by Robby Ram MD in OV> 12/27/172115 Dictated By: Robby Ram MD Dictated Date/Time: 12/27/172115 Transcribed Date/Time: 12/27/172100 Copy to: Assess/Plan/Problems-Billing Assessment: This is a 77 year old male patient with hx of OA, right TKA, s/p fall, now with low back spasms and paresthesias and inability to bear weight or ambulate unassisted. - Patient Problems (1) Fall from standing Code(s): W19.XXXA - UNSPECIFIED FALL, INITIAL ENCOUNTER SNOMED Code(s): 5626577 Comment: - Question if the weakness is coming from his right knee vs lumbar region, as patient states he has bilateral weakness and knee pain is resolved - Does have history of degenerative disc disease and decompression surgery in the past; will MRI lumbar spine with and without contrast to r/o cord compression/stenosis - Trial valium for spasms - Continue PT (2) Knee pain, right Code(s): M25.561 - PAIN IN RIGHT KNEE SNOMED Code(s): 79111406 Comment: - Pain resolved, left weith weakness and paresthesias - Xray as above, no acute findings. Prosthesis intact, no fracture or dislocation noted - Likely needs PT/rehab for quad weakness (3) Weakness of both lower extremities Code(s): R29.898 - OTH SYMPTOMS AND SIGNS INVOLVING THE MUSCULOSKELETAL SYSTEM SNOMED Code(s): 1227305 Comment: - Concern that culprit is his low back and not the knee given continued inability to bear weight, recent falls and inability to ambulate - MRI lumbar today (4) Radiculopathy of lumbar region Code(s): M54.16 - RADICULOPATHY, LUMBAR REGION SNOMED Code(s): 773934512 Comment: - Pronounced spasms and paresthesias with movement - Will trial valium and eval MRI, if stenosis or compression will start steroids and consult NS (5) Hypertension Code(s): I10 - ESSENTIAL (PRIMARY) HYPERTENSION SNOMED Code(s): 49003488 Comment: - Stable on losartan and metoprolol (6) Atrial fibrillation Code(s): I48.91 - UNSPECIFIED ATRIAL FIBRILLATION SNOMED Code(s): 71282882 Comment: - Stable on xarelto and metoprolol (7) DVT prophylaxis Code(s): NAM8370 - SNOMED Code(s): 232104253 Comment: - On xarelto (8) Full code status Code(s): Z78.9 - OTHER SPECIFIED HEALTH STATUS SNOMED Code(s): 915934139 Status and Disposition: Remain inpatient obs.
[2017-12-28] MEDS: Diazepam TAB(*) 5 MG PO PRN ×2 (14:13→22:05)
[2017-12-28] MEDS ORDERED: Gadoteridol* (CONTRAST) 279.3 MG/ML 10 ML IV ONE (15:46)
--- NOTE | 2017-12-28 17:14 | RAD ---
Indication: Prior lumbar discectomy. Inability to bear weight. Image sequences: Sagittal T1, T2, STIR, axial T1 and T2-weighted images of the lumbar spine were obtained. 20 mL of ProHance was injected and postcontrast sagittal and axial fat-suppressed T1-weighted images were repeated. The vertebral bodies appear normal in height. Heterogeneous bone marrow signal is noted consistent with conversion of yellow marrow to red marrow. Overall appearance does not appear to be significantly changed since November 24, 2014. At L5-S1 degenerative disc disease. Spondylitic ridge with broad-based protrusion is noted bilaterally. There is narrowing of the foramen bilaterally. This is unchanged from previous exam. At L4-L5 there is degenerative disc disease noted. There is a far right lateral disc protrusion which appears to impinge upon the right exiting nerve root. This appears to be similar to that seen on prior exam. Mild left foraminal stenosis is noted. At L3-L4 spondylitic ridge flattens the thecal sac. Facet arthropathy is noted. Broad-based disc protrusions appears to narrow both intervertebral foramen worse on the right than on the left. At L2-L3 degenerative disc disease is noted. Spondylitic ridge flattens the thecal sac. Mild to moderate facet hypertrophy is noted. At L1-L2 broad-based protrusion flattens the thecal sac. Moderate facet hypertrophy is noted. At T12-L1 disc space appears unremarkable. The postcontrast images demonstrate complete enhancement L1-L2. No evidence of increased signal is noted in the disc and this likely represents degenerative disc disease. No other areas of epidural enhancement is noted. IMPRESSION: Multilevel degenerative disc disease. There is enhancement at the L1-L2 endplates without definite evidence of increased signal of the disc consistent with degenerative changes. Multilevel degenerative disc disease with multiple areas of foraminal stenosis is present. Please see above for specific disc levels.
[2017-12-29] MEDS: Omeprazole CAP* 20 MG PO SCH (06:20)
[2017-12-29] MEDS: Diazepam TAB(*) 5 MG PO PRN (09:22)
[2017-12-29] MEDS: Docusate CAP* 100 MG PO SCH ×2 (09:22→21:25)
[2017-12-29] MEDS: Rivaroxaban TAB(*) 20 MG TAB PO SCH (09:22)
[2017-12-29] MEDS: oxyCODONE TAB* 5 MG TAB PO PRN ×3 (11:01→21:25)
[2017-12-29] MEDS ORDERED: Dexamethasone IV* 4 MG/ML 1 ML (4 MG) IV SLOW PU ONE ×2 (12:40→20:30)
--- NOTE | 2017-12-29 15:04 | PN ---
Subjective Date of Service: 12/29/17 Interval History: Patient seen and examined. Still unable to bear weight, reports significant weakness of legs with paresthesias R>L and pain described as "spasms" through the low back and lower extremities. Denies SOB, no chest pain, tolerating PO. PT and nursing notes reviewed. Objective Active Medications: Albuterol (Ventolin 2.5 Mg/3 Ml Neb.Leanna*) 2.5 mg INH Q2H PRN PRN Reason: SOB/WHEEZING Diazepam (Valium Tab(*)) 5 mg PO Q8H PRN PRN Reason: spasm Last Admin: 12/29/17 09:22 Dose: 5 mg Docusate Sodium (Colace Cap*) 200 mg PO BID [facility] Last Admin: 12/29/17 09:22 Dose: 200 mg Melatonin (Melatonin (Nf)) 3 mg PO BEDTIME PRN; Protocol PRN Reason: Sleep Last Admin: 12/28/17 04:08 Dose: 3 mg Omeprazole (Prilosec Cap*) 20 mg PO DAILY@0600 [facility] Last Admin: 12/29/17 06:20 Dose: 20 mg Ondansetron HCl (Zofran Inj*) 4 mg IV Q6H PRN PRN Reason: NAUSEA Oxycodone HCl (Roxycodone Tab*) 10 mg PO Q4H PRN PRN Reason: PAIN Last Admin: 12/29/17 11:01 Dose: 10 mg Rivaroxaban (Xarelto(*)) 20 mg PO DAILY [facility] Last Admin: 12/29/17 09:22 Dose: 20 mg Tramadol HCl (Ultram*) 50 mg PO Q6H PRN PRN Reason: PAIN Vital Signs - 8 hr 12/29/17 12/29/17 12/29/17 07:38 08:00 09:13 Temperature 99.5 F 98.0 F Pulse Rate 87 Respiratory 18 18 Rate Blood Pressure 150/69 (mmHg) O2 Sat by Pulse 91 Oximetry 12/29/17 12/29/17 12/29/17 09:22 11:01 11:23 Temperature Pulse Rate Respiratory 18 18 18 Rate Blood Pressure (mmHg) O2 Sat by Pulse Oximetry 12/29/17 11:39 Temperature 99.1 F Pulse Rate 103 Respiratory 18 Rate Blood Pressure 143/79 (mmHg) O2 Sat by Pulse 90 Oximetry Oxygen Devices in Use Now: None Appearance: Alert, somewhat anxious Eyes: No Scleral Icterus, PERRLA Ears/Nose/Mouth/Throat: NL Teeth, Lips, Gums, Mucous Membranes Moist Neck: Trachea Midline Respiratory: Symmetrical Chest Expansion and Respiratory Effort, Clear to Auscultation Cardiovascular: NL Sounds; No Murmurs; No JVD, RRR Abdominal: NL Sounds; No Tenderness; No Distention Extremities: No Edema, No Clubbing, Cyanosis Neurological: Alert and Oriented x 3, - - decreased tone RLE with weakness bilat of LE Nutrition: Taking PO's Result Diagrams: 12/28/17 01:55 12/28/17 01:55 Additional Lab and Data: Lab Results 12/28/17 12/28/17 Range/Units 01:55 01:55 WBC 10.2 (3.5-10.8) 10^3/ul RBC 4.72 (4.0-5.4) 10^6/ul Hgb 14.4 (14.0-18.0) g/dl Hct 43 (42-52) % MCV 91 (80-94) fL MCH 30 (27-31) pg MCHC 34 (31-36) g/dl RDW 13 (10.5-15) % Plt Count 128 L (150-450) 10^3/ul MPV 9 (7.4-10.4) um3 Neut % (Auto) 68.7 (38-83) % Lymph % (Auto) 19.0 L (25-47) % [place] % (Auto) 10.3 H (0-7) % Eos % (Auto) 1.5 (0-6) % Baso % (Auto) 0.5 (0-2) % Absolute Neuts (auto) 7.0 (1.5-7.7) 10^3/ul Absolute Lymphs (auto) 1.9 (1.0-4.8) 10^3/ul Absolute Monos (auto) 1.0 H (0-0.8) 10^3/ul Absolute Eos (auto) 0.2 (0-0.6) 10^3/ul Absolute Basos (auto) 0 (0-0.2) 10^3/ul Absolute Nucleated RBC 0 10^3/ul Nucleated RBC % 0 Sodium 136 (133-145) mmol/L Potassium 4.1 (3.5-5.0) mmol/L Chloride 101 (101-111) mmol/L Carbon Dioxide 31 (22-32) mmol/L Anion Gap 4 (2-11) mmol/L BUN 13 (6-24) mg/dL Creatinine 0.79 (0.67-1.17) mg/dL Est GFR ( Amer) 122.6 (>60) Est GFR (Non-Af Amer) 95.4 (>60) BUN/Creatinine Ratio 16.5 (8-20) Glucose 97 (70-100) mg/dL Calcium 9.1 (8.6-10.3) mg/dL Total Bilirubin 1.00 (0.2-1.0) mg/dL AST 23 (13-39) U/L ALT 21 (7-52) U/L Alkaline Phosphatase 49 (34-104) U/L Total Protein 6.7 (6.4-8.9) g/dL Albumin 3.7 (3.2-5.2) g/dL Globulin 3.0 (2-4) g/dL Albumin/Globulin Ratio 1.2 (1-3) Diagnostic Imaging: MRI LUMBAR SPINE Patient Name: FUAD ESTRADA Medical Record#: [id number] Ordering Physician: Kimberley Vazquez NP Acct.#: [id number] : 1940 Age: 77 Sex: M Location: [address] [place] [address] MEDICAL Exam Date: 12/28/17 1101 ADM Status: ADM Vibha Order Information: MRI LUMBAR SPINE W/WO Accession Number: [id number] CPT: 57946 Indication: Prior lumbar discectomy. Inability to bear weight. Image sequences: Sagittal T1, T2, STIR, axial T1 and T2-weighted images of the lumbar spine were obtained. 20 mL of ProHance was injected and postcontrast sagittal and axial fat-suppressed T1-weighted images were repeated. The vertebral bodies appear normal in height. Heterogeneous bone marrow signal is noted consistent with conversion of yellow marrow to red marrow. Overall appearance does not appear to be significantly changed since November 24, 2014. At L5-S1 degenerative disc disease. Spondylitic ridge with broad-based protrusion is noted bilaterally. There is narrowing of the foramen bilaterally. This is unchanged from previous exam. At L4-L5 there is degenerative disc disease noted. There is a far right lateral disc protrusion which appears to impinge upon the right exiting nerve root. This appears to be similar to that seen on prior exam. Mild left foraminal stenosis is noted. At L3-L4 spondylitic ridge flattens the thecal sac. Facet arthropathy is noted. Broad-based disc protrusions appears to narrow both intervertebral foramen worse on the right than on the left. At L2-L3 degenerative disc disease is noted. Spondylitic ridge flattens the thecal sac. Mild to moderate facet hypertrophy is noted. At L1-L2 broad-based protrusion flattens the thecal sac. Moderate facet hypertrophy is noted. At T12-L1 disc space appears unremarkable. The postcontrast images demonstrate complete enhancement L1-L2. No evidence of increased signal is noted in the disc and this likely represents degenerative disc disease. No other areas of epidural enhancement is noted. IMPRESSION: Multilevel degenerative disc disease. There is enhancement at the L1 -L2 endplates without definite evidence of increased signal of the disc consistent with degenerative changes. Multilevel degenerative disc disease with multiple areas of foraminal stenosis is present. Please see above for specific disc levels. XRAY RIGHT KNEE Patient Name: FUAD ESTRADA Medical Record#: [id number] Ordering Physician: Nilay Cesar MD Acct.#: [id number] : 1940 Age: 77 Sex: M Location: EMERGENCY DEPARTMENT Exam Date: 12/27/172034 ADM Status: REG ER Order Information: KNEE RIGHT 4+ VWS Accession Number: [id number] CPT: 95404 INDICATION: Knee pain COMPARISON: Right femur July 22, 2017 TECHNIQUE: AP, lateral, and sunrise were obtained. FINDINGS: There is right knee arthroplasty. Both femoral and tibial components appear well seated. There is no evidence of a joint effusion. There are vascular calcifications. IMPRESSION: RIGHT KNEE ARTHROPLASTY. <Electronically signed by Robby Ram MD in [place]> 12/27/172115 Dictated By: Robby Ram MD Dictated Date/Time: 12/27/172115 Transcribed Date/Time: 12/27/172100 Copy to: Assess/Plan/Problems-Billing Assessment: This is a 77 year old male patient with hx of OA, right TKA, s/p fall, now with low back spasms and paresthesias and inability to bear weight or ambulate unassisted. - Patient Problems (1) Fall from standing Code(s): W19.XXXA - UNSPECIFIED FALL, INITIAL ENCOUNTER SNOMED Code(s): 9272983 Comment: - Question if the weakness and fall is coming from his right knee vs lumbar region, as patient states he has bilateral weakness and knee pain is resolved - Fall precautions (2) Knee pain, right Code(s): M25.561 - PAIN IN RIGHT KNEE SNOMED Code(s): 78480160 Comment: - Pain resolved, left weith weakness and paresthesias - Xray as above, no acute findings. Prosthesis intact, no fracture or dislocation noted (3) Weakness of both lower extremities Code(s): R29.898 - OTH SYMPTOMS AND SIGNS INVOLVING THE MUSCULOSKELETAL SYSTEM SNOMED Code(s): 6275621 Comment: - MRI lumbar obtained, report as above - Consult to neurosurgery given hx of lumbar decompression and bilateral LE weakness, will trial IV decadron, continue valium PRN and pain meds - Continue PT if tolerated (4) Radiculopathy of lumbar region Code(s): M54.16 - RADICULOPATHY, LUMBAR REGION SNOMED Code(s): 302964537 Comment: - Pronounced spasms and paresthesias with movement - continue valium, decadron IV x1 dose, monitor for effect - appreciate recs from NS today (5) Hypertension Code(s): I10 - ESSENTIAL (PRIMARY) HYPERTENSION SNOMED Code(s): 47536464 Comment: - Stable on losartan and metoprolol (6) Atrial fibrillation Code(s): I48.91 - UNSPECIFIED ATRIAL FIBRILLATION SNOMED Code(s): 20597604 Comment: - Stable on xarelto and metoprolol (7) DVT prophylaxis Code(s): YTK4261 - SNOMED Code(s): 550455219 Comment: - On xarelto (8) Full code status Code(s): Z78.9 - OTHER SPECIFIED HEALTH STATUS SNOMED Code(s): 784552391 Status and Disposition: Remain inpatient pending NS consult. Counseling and/or Coordination of Care Minutes: coordinated with RUY Cabrera, neurosurgery and patient's family
--- NOTE | 2017-12-29 18:11 | CONSULT ---
Consult Consult: Neurosurgery Consult Date of Admission: 12/27/17 Date of Consult: 12/29/17 Reason for Consult: Lumbar radiculopathy Referring Provider: Kimberley Vazquez NP HPI: This is a 77 year old male with past medical history significant for HTN, atrial fibrillation, lumbar decompression and right knee arthroplasty who presented to the [facility] ED with complaint of right knee pain after a fall on . The patient states that he was standing at the sink doing dishes when he experienced a muscle spasm so severe that he fell onto his knees. He was unable to get up after the fall and crawled to the couch to call for help. Currently, the patient complains primarily of right knee pain and muscle spasms in the right knee and low back. The spasms are at times unprovoked and also worse with movement. He has not experienced this prior to . He denies pain radiating down the lower extremities. He denies numbness and tingling of the lower extremities. When he stands, he experiences severe spasm with weight bearing on the RLE, causing him to nearly fall. He is unable to localize whether the spasm is low back or in the RLE. He denies left lower extremity pain , weakness and numbness. He denies neck pain, numbness, tingling, weakness and pain in the bilateral upper extremities. Denies recent illness, fever, chills and nausea. He has a history of right knee arthroplasty in 2004. Recovery was complicated with staph infection requiring a course of IV antibiotics. He is vague in detailing the difficulty he has experienced recently with knee and low back pain. However, he states that he follows with the pain clinic for medical pain management. According to hospital records, he has followed with Dr. Martinez for low back and right thigh pain. He has not undergone any procedures or injections for pain management recently because he has experienced difficulty and complications with this in the past. He states that he has been trying to walk more because he has gained weight over the recent years. He also has a history of lumbar decompression (possibly in 2008) in [place]. Per the patient , L1-4 was decompressed but he continued to experience the same pre-operative pain post-operatively. Past Medical History: 1. HTN 2. Atrial fibrillation Past Surgical History: 1. Right TKA 2. Lumbar decompression Home Medications: 1. Losartan TAB* [Cozaar TAB*] 50 mg PO DAILY 06/11/15 [History Confirmed ] 2. Metoprolol Succinate XL TAB* [Toprol XL TAB*] 50 mg PO BID 06/11/15 [History Confirmed 12/28/17] 3. Rivaroxaban TAB(*) [Xarelto (NF)] 20 mg PO DAILY 07/29/15 [History Confirmed 12/28/17] 4. Acetaminop/Codeine 30 MG TAB* [Tylenol/Codeine 30 MG TAB*] 1 tab PO Q4H PRN MDD 6 07/12/17 [History Confirmed 12/28/17] Allergies: No known allergies ROS: Complete ROS performed. Pertinent findings stated in HPI and all others negative. Physical Exam: Vital Signs: Temp Pulse Resp BP Pulse Ox 98.5 F 125 22 117/61 90 12/29/17 15:38 12/29/17 15:38 12/29/17 15:38 12/29/17 15:38 12/29/17 15:38 General: Alert and oriented. Laying comfortably in bed. No acute pain or distress. HEENT: Head is normocephalic and atraumatic. PERRL, EOMI, sclerae anicteric. Gross hearing intact. Moist mucus membranes. Neck: Neck is supple and symmetric. No obvious deformity. Nontender to palpation. CV: Radial pulsess 2+ and equal. Posterior tibial pulse 1+ bilaterally. Unable to palpate dorsalis pedis pulses bilaterally. Feet are cyanotic bilaterally, right worse than left. No edema. Lungs: Breathing is nonlabored. Lungs are clear. Abdomen: The abdomen is moderately rounded. Normoactive bowel sounds. Nontender , nondistended. Neuro: Speech is clear. CN II-XII intact. Strength in upper extremities is 5/5 bilaterally. Strength in LLE is 5/5. Strength in RLE: Dorsiflexion, plantarflexion, hamstrings 5/5; quadriceps and hip flexor testing elicits pain 4 +/5. Sensation intact in upper and lower extremities bilaterally. Negative Hoffmans. Extremities: Right knee-Palpation of right knee elicits pain in right knee. No ecchymosis, erythema or acute swelling of right knee. Surgical scar well healed. Hips- Hips are nontender to palpation bilaterally. Patient reports right butsitis. No pain with hip rotation although unable to test RLE well secondary to pain in R knee with flexion. Imagin. MRI of the lumbar spine on 12/28/17 shows post-operative changes, multilevel degenerative disc disease and foraminal stenosis. Assessment and Plan: This patient presents to the [facility] ED after a fall complaining of right knee pain. He has been inconsistent with HPI; denies radiculopathy but reports weakness of the RLE with standing/weight bearing. Neuro intact with exception of mild right quadricep and hip flexor weakness possibly secondary to pain. Significant right knee pain appreciated on exam with palpation and knee flexion/extension. MRI shows multilevel degenerative changes and stenosis, however, I do not believe lumbar surgery is indicated at this time. I recommend further right knee work up and vascular studies of the lower extremities. If work up is negative, this patient is welcome to follow up in office as outpatient. This case and plan was discussed with Kimberley Vazquez NP.
--- NOTE | 2017-12-29 19:27 | RAD ---
Indication: Right leg edema and pain. Duplex Doppler sonography of the deep venous system of the right lower extremity deep venous system was performed. Bilaterally the common femoral veins appear patent and compressible. Right proximal greater saphenous vein, proximal deep femoral vein, femoral vein, popliteal vein, posterior tibial veins and peroneal veins appear patent and compressible. IMPRESSION: NO EVIDENCE OF DEEP VENOUS THROMBOSIS IS IDENTIFIED.
[2017-12-30] MEDS: CMCS Melatonin (NF) 3 MG TAB PO PRN (02:33)
[2017-12-30] MEDS: Omeprazole CAP* 20 MG PO SCH (05:57)
[2017-12-30] MEDS: Docusate CAP* 100 MG PO SCH ×2 (07:53→21:02)
[2017-12-30] MEDS: Rivaroxaban TAB(*) 20 MG TAB PO SCH (07:53)
--- NOTE | 2017-12-30 08:51 | PN ---
Subjective Date of Service: 12/30/17 Interval History: . Interviewed and examined patient at bedside; Reviewed previous notes and radiology results; met with patient and son/daughter (from [place], [place]) reviewed H&P and Neurosurgery consult. patient still interested in speaking with neurosurgeon about dx -- describes intermittent leg weakness with unclear relationship with back spasms... we discussed that it might be that his back spasms cause him to fall, but not true weakness as MRI findings do not suggest nerve compression to explain that... Consider ortho consult in AM for left knee, though no pain today and no deformity. Continuing PT High likelihood for STR... Family History: Unchanged from Admission Social History: Unchanged from Admission Past Medical History: Unchanged from Admission Objective Active Medications: . Albuterol (Ventolin 2.5 Mg/3 Ml Neb.Leanna*) 2.5 mg INH Q2H PRN PRN Reason: SOB/WHEEZING Diazepam (Valium Tab(*)) 5 mg PO Q8H PRN PRN Reason: spasm Last Admin: 12/29/17 09:22 Dose: 5 mg Docusate Sodium (Colace Cap*) 200 mg PO BID [facility] Last Admin: 12/30/17 07:53 Dose: 200 mg Melatonin (Melatonin (Nf)) 3 mg PO BEDTIME PRN; Protocol PRN Reason: Sleep Last Admin: 12/30/17 02:33 Dose: 3 mg Omeprazole (Prilosec Cap*) 20 mg PO DAILY@0600 [facility] Last Admin: 12/30/17 05:57 Dose: 20 mg Ondansetron HCl (Zofran Inj*) 4 mg IV Q6H PRN PRN Reason: NAUSEA Oxycodone HCl (Roxycodone Tab*) 10 mg PO Q4H PRN PRN Reason: PAIN Last Admin: 12/29/17 21:25 Dose: 10 mg Rivaroxaban (Xarelto(*)) 20 mg PO DAILY [facility] Last Admin: 12/30/17 07:53 Dose: 20 mg Tramadol HCl (Ultram*) 50 mg PO Q6H PRN PRN Reason: PAIN . Vital Signs - 8 hr 12/30/17 12/30/17 12/30/17 04:03 07:26 08:00 Temperature 98.6 F 98.0 F Pulse Rate 83 91 Respiratory 18 18 16 Rate Blood Pressure 122/78 118/58 (mmHg) O2 Sat by Pulse 95 95 Oximetry Oxygen Devices in Use Now: None Appearance: elderly man, NAD at time of exam Eyes: No Scleral Icterus Ears/Nose/Mouth/Throat: Clear Oropharnyx Neck: NL Appearance and Movements; NL JVP Respiratory: Symmetrical Chest Expansion and Respiratory Effort Cardiovascular: NL Sounds; No Murmurs; No JVD Abdominal: NL Sounds; No Tenderness; No Distention Lymphatic: No Cervical Adenopathy Extremities: No Edema, - - left knee s/p TKR 10+ yrs ago - no deformity Skin: No Rash or Ulcers Neurological: Alert and Oriented x 3, NL Sensation, NL Muscle Strength and Tone - at rest in bed - stood at bedside, but did not ambulate far. Lines/Tubes/Other Access: Clean, Dry and Intact Peripheral IV Nutrition: Taking PO's Result Diagrams: 12/28/17 01:55 12/28/17 01:55 Additional Lab and Data: . Diagnostic Imaging: MRI LUMBAR SPINE Patient Name: FUAD ESTRADA Medical Record#: [id number] Ordering Physician: Kimberley Vazquez STABLE ATTENDANT Acct.#: [id number] : 1940 Age: 77 Sex: M Location: [address] [place] [address] - [facility] Exam Date: 12/28/171100 ADM Status: ADM Vibha Order Information: MRI LUMBAR SPINE W/WO Accession Number: [id number] CPT: 45658 Indication: Prior lumbar discectomy. Inability to bear weight. Image sequences: Sagittal T1, T2, STIR, axial T1 and T2-weighted images of the lumbar spine were obtained. 20 mL of ProHance was injected and postcontrast sagittal and axial fat-suppressed T1-weighted images were repeated. The vertebral bodies appear normal in height. Heterogeneous bone marrow signal is noted consistent with conversion of yellow marrow to red marrow. Overall appearance does not appear to be significantly changed since November 24, 2014. At L5-S1 degenerative disc disease. Spondylitic ridge with broad-based protrusion is noted bilaterally. There is narrowing of the foramen bilaterally. This is unchanged from previous exam. At L4-L5 there is degenerative disc disease noted. There is a far right lateral disc protrusion which appears to impinge upon the right exiting nerve root. This appears to be similar to that seen on prior exam. Mild left foraminal stenosis is noted. At L3-L4 spondylitic ridge flattens the thecal sac. Facet arthropathy is noted. Broad-based disc protrusions appears to narrow both intervertebral foramen worse on the right than on the left. At L2-L3 degenerative disc disease is noted. Spondylitic ridge flattens the thecal sac. Mild to moderate facet hypertrophy is noted. At L1-L2 broad-based protrusion flattens the thecal sac. Moderate facet hypertrophy is noted. At T12-L1 disc space appears unremarkable. The postcontrast images demonstrate complete enhancement L1-L2. No evidence of increased signal is noted in the disc and this likely represents degenerative disc disease. No other areas of epidural enhancement is noted. IMPRESSION: Multilevel degenerative disc disease. There is enhancement at the L1 -L2 endplates without definite evidence of increased signal of the disc consistent with degenerative changes. Multilevel degenerative disc disease with multiple areas of foraminal stenosis is present. Please see above for specific disc levels. XRAY RIGHT KNEE Patient Name: FUAD ESTRADA Medical Record#: [id number] Ordering Physician: Nilay Cesar MD Acct.#: [id number] : 1940 Age: 77 Sex: M Location: EMERGENCY DEPARTMENT Exam Date: 12/27/172034 ADM Status: REG ER Order Information: KNEE RIGHT 4+ VWS Accession Number: [id number] CPT: 81006 INDICATION: Knee pain COMPARISON: Right femur July 22, 2017 TECHNIQUE: AP, lateral, and sunrise were obtained. FINDINGS: There is right knee arthroplasty. Both femoral and tibial components appear well seated. There is no evidence of a joint effusion. There are vascular calcifications. IMPRESSION: RIGHT KNEE ARTHROPLASTY. <Electronically signed by Robby Ram MD in [place]> 12/27/172115 Dictated By: Robby Ram MD Dictated Date/Time: 12/27/172115 Transcribed Date/Time: 12/27/172100 Copy to: Assess/Plan/Problems-Billing Assessment: This is a 77 year old male patient with hx of OA, right TKA, s/p fall, now with low back spasms and paresthesias and inability to bear weight or ambulate unassisted. - Patient Problems (1) Radiculopathy of lumbar region Current Visit: Yes Status: Acute Priority: High Code(s): M54.16 - RADICULOPATHY, LUMBAR REGION Comment: - Pronounced spasms and paresthesias with movement - Continue valium as ordered - Decadron IV x 1 dose; some improvement noted - did not continue - NS consult noted (2) Weakness of both lower extremities Current Visit: Yes Status: Acute Priority: High Code(s): R29.898 - OT SYMPTOMS AND SIGNS INVOLVING THE MUSCULOSKELETAL SYSTEM Comment: - MRI lumbar obtained, report as above - Consult to neurosurgery given hx of lumbar decompression and bilateral LE weakness, will trial IV decadron, continue valium PRN and pain meds - Continue PT as tolerated (3) Knee pain, right Current Visit: Yes Status: Acute Priority: High Code(s): M25.561 - PAIN IN RIGHT KNEE Comment: - Pain resolved, left with weakness and paresthesias - but not noted 12/30... - X-ray as above, no acute findings. Prosthesis intact, no fracture or dislocation noted (4) Fall from standing Current Visit: Yes Status: Acute Priority: High Code(s): W19.XXXA - UNSPECIFIED FALL, INITIAL ENCOUNTER Comment: - Question if the weakness and fall is coming from his right knee vs lumbar region, as patient states he has bilateral weakness and knee pain is resolved - Fall precautions - careful PT (5) Atrial fibrillation Current Visit: Yes Status: Acute Priority: High Code(s): I48.91 - UNSPECIFIED ATRIAL FIBRILLATION Comment: - Stable on xarelto and metoprolol (6) Hypertension Current Visit: Yes Status: Chronic Priority: High Code(s): I10 - ESSENTIAL (PRIMARY) HYPERTENSION Comment: - Stable on losartan and metoprolol (7) DVT prophylaxis Current Visit: Yes Status: Chronic Priority: Medium Code(s): WEO5378 - Comment: - On xarelto (8) Full code status Current Visit: Yes Status: Chronic Priority: High Code(s): Z78.9 - OTHER SPECIFIED HEALTH STATUS Status and Disposition: inpatient as per previous disposition
[2017-12-31] MEDS: CMCS Melatonin (NF) 3 MG TAB PO PRN (02:34)
[2017-12-31] MEDS: oxyCODONE TAB* 5 MG TAB PO PRN ×3 (05:49→15:29)
[2017-12-31] MEDS: Omeprazole CAP* 20 MG PO SCH (05:49)
[2017-12-31] MEDS: traMADol TAB* 50 MG PO PRN ×2 (08:10→15:27)
--- NOTE | 2017-12-31 09:28 | PN ---
Subjective Date of Service: 12/31/17 Interval History: Pain in R leg little change since admission. Patient feels he could not use the stairs in his home. Family History: Unchanged from Admission Social History: Unchanged from Admission Past Medical History: Unchanged from Admission Objective Active Medications: Albuterol (Ventolin 2.5 Mg/3 Ml Neb.Leanna*) 2.5 mg INH Q2H PRN PRN Reason: SOB/WHEEZING Diazepam (Valium Tab(*)) 5 mg PO Q8H PRN PRN Reason: spasm Last Admin: 12/29/17 09:22 Dose: 5 mg Docusate Sodium (Colace Cap*) 200 mg PO BID [facility] Last Admin: 12/30/17 21:02 Dose: 200 mg Omeprazole (Prilosec Cap*) 20 mg PO DAILY@0600 [facility] Last Admin: 12/31/17 05:49 Dose: 20 mg Ondansetron HCl (Zofran Inj*) 4 mg IV Q6H PRN PRN Reason: NAUSEA Oxycodone HCl (Roxycodone Tab*) 10 mg PO Q3H PRN PRN Reason: PAIN Rivaroxaban (Xarelto(*)) 20 mg PO DAILY [facility] Last Admin: 12/30/17 07:53 Dose: 20 mg Tramadol HCl (Ultram*) 50 mg PO Q6H PRN PRN Reason: PAIN Last Admin: 12/31/17 08:10 Dose: 50 mg Vital Signs - 8 hr 12/31/17 12/31/17 12/31/17 02:33 05:49 08:10 Temperature 97.7 F Pulse Rate 82 Respiratory 16 18 18 Rate Blood Pressure 138/70 (mmHg) O2 Sat by Pulse 100 Oximetry 12/31/17 08:11 Temperature Pulse Rate Respiratory 18 Rate Blood Pressure (mmHg) O2 Sat by Pulse Oximetry Oxygen Devices in Use Now: None Appearance: Alert, sitting on the edge of his bed. In fair spirits. Looks comfortable at rest. Eyes: No Scleral Icterus Neck: NL Appearance and Movements; NL JVP, No Thyroid Enlargement, Masses Respiratory: Symmetrical Chest Expansion and Respiratory Effort, Clear to Auscultation, Clear to Percussion Cardiovascular: NL Sounds; No Murmurs; No JVD, RRR, No Edema, - Extremities: - - R knee good ROM, chronically sl swollen, not warm, red or tender. Able to extend R knee with little pain. Skin: No Rash or Ulcers, No Nodules or Sclerosis, - Neurological: Alert and Oriented x 3, NL Sensation Result Diagrams: 12/31/17 11:33 12/28/17 01:55 Additional Lab and Data: . Diagnostic Imaging: MRI LUMBAR SPINE Patient Name: FUAD ESTRADA Medical Record#: [id number] Ordering Physician: Kimberley Vazquez NP Acct.#: [id number] : 1940 Age: 77 Sex: M Location: [address] [place] [address] MEDICAL Exam Date: 12/28/171100 ADM Status: ADM Vibha Order Information: MRI LUMBAR SPINE W/WO Accession Number: [id number] CPT: 06831 Indication: Prior lumbar discectomy. Inability to bear weight. Image sequences: Sagittal T1, T2, STIR, axial T1 and T2-weighted images of the lumbar spine were obtained. 20 mL of ProHance was injected and postcontrast sagittal and axial fat-suppressed T1-weighted images were repeated. The vertebral bodies appear normal in height. Heterogeneous bone marrow signal is noted consistent with conversion of yellow marrow to red marrow. Overall appearance does not appear to be significantly changed since November 24, 2014. At L5-S1 degenerative disc disease. Spondylitic ridge with broad-based protrusion is noted bilaterally. There is narrowing of the foramen bilaterally. This is unchanged from previous exam. At L4-L5 there is degenerative disc disease noted. There is a far right lateral disc protrusion which appears to impinge upon the right exiting nerve root. This appears to be similar to that seen on prior exam. Mild left foraminal stenosis is noted. At L3-L4 spondylitic ridge flattens the thecal sac. Facet arthropathy is noted. Broad-based disc protrusions appears to narrow both intervertebral foramen worse on the right than on the left. At L2-L3 degenerative disc disease is noted. Spondylitic ridge flattens the thecal sac. Mild to moderate facet hypertrophy is noted. At L1-L2 broad-based protrusion flattens the thecal sac. Moderate facet hypertrophy is noted. At T12-L1 disc space appears unremarkable. The postcontrast images demonstrate complete enhancement L1-L2. No evidence of increased signal is noted in the disc and this likely represents degenerative disc disease. No other areas of epidural enhancement is noted. IMPRESSION: Multilevel degenerative disc disease. There is enhancement at the L1 -L2 endplates without definite evidence of increased signal of the disc consistent with degenerative changes. Multilevel degenerative disc disease with multiple areas of foraminal stenosis is present. Please see above for specific disc levels. XRAY RIGHT KNEE Patient Name: FUAD ESTRADA Medical Record#: [id number] Ordering Physician: Nilay Cesar MD Acct.#: [id number] : 1940 Age: 77 Sex: M Location: EMERGENCY DEPARTMENT Exam Date: 12/27/172034 ADM Status: REG ER Order Information: KNEE RIGHT 4+ VWS Accession Number: [id number] CPT: 27298 INDICATION: Knee pain COMPARISON: Right femur July 22, 2017 TECHNIQUE: AP, lateral, and sunrise were obtained. FINDINGS: There is right knee arthroplasty. Both femoral and tibial components appear well seated. There is no evidence of a joint effusion. There are vascular calcifications. IMPRESSION: RIGHT KNEE ARTHROPLASTY. <Electronically signed by Robby Ram MD in OV> 12/27/172115 Dictated By: Robby Ram MD Dictated Date/Time: 12/27/172115 Transcribed Date/Time: 12/27/172100 Copy to: Assess/Plan/Problems-Billing Assessment: This is a 77 year old male patient with hx of OA, right TKA, s/p fall, now with low back spasms and paresthesias and inability to bear weight or ambulate unassisted. - Patient Problems (1) Knee pain, right Current Visit: Yes Status: Acute Priority: High Code(s): M25.561 - PAIN IN RIGHT KNEE SNOMED Code(s): 84490510 Comment: CT R leg showed the prosthesis intact, no fracture or hardware disruption noted. Some edema anterior leg above knee, could be result of quad tear. I discussed the patient with both Dr. West and Dr. Cox. Three phase bone scan ordered to r/o infection. MRI ordered to r/o quad tear, likely images will be degraded due to metal hardware. (2) Atrial fibrillation Current Visit: Yes Status: Acute Priority: High Code(s): I48.91 - UNSPECIFIED ATRIAL FIBRILLATION SNOMED Code(s): 00095563 Comment: Continue on rivaroxaban; metoprolol on hold. (3) Hypertension Current Visit: Yes Status: Chronic Priority: High Code(s): I10 - ESSENTIAL (PRIMARY) HYPERTENSION SNOMED Code(s): 01380645 Comment: Losartan and metoprolol on hold. Status and Disposition: inpatient as per previous disposition
[2017-12-31] MEDS: Rivaroxaban TAB(*) 20 MG TAB PO SCH (09:31)
[2017-12-31] MEDS: Docusate CAP* 100 MG PO SCH ×2 (09:31→20:20)
--- NOTE | 2017-12-31 10:49 | RAD ---
INDICATION: Fall. Right knee pain COMPARISON: Right knee December 27, 2017 TECHNIQUE: Axial scans were performed with coronal and sagittal reconstructions. FINDINGS: There is right knee arthroplasty. The prosthesis appears well seated. There is no evidence of hardware failure. There is no periprosthetic fracture. There is a small amount of edema in the superficial soft tissues of the anterior knee. There may be a quadriceps tendon injury. This could be evaluated with MR imaging if desired. There is a small joint effusion. IMPRESSION: NO EVIDENCE OF HARDWARE FAILURE OR PERIPROSTHETIC FRACTURE. POSSIBLE SOFT TISSUE INJURY/SMALL JOINT EFFUSION. BOTH EVALUATED WITH MR IMAGING IF THERE IS CLINICAL INDICATION TO DO SO.
[2017-12-31 11:41] LABS: ABS Basophils 0.1 10^3/ul (0-0.2); ABS Eosinophils 0.3 10^3/ul (0-0.6); ABS Lymphocytes 2.2 10^3/ul (1.0-4.8); ABS Neutrophils 6.7 10^3/ul (1.5-7.7); ABS Nucleated RBC 0 10^3/ul; Hematocrit 41 % (42-52); Hemoglobin 13.7 g/dl (14.0-18.0); Lymphocyte % 21.5 % (25-47); Mean Corpuscular HGB Conc 33 g/dl (31-36); Mean Corpuscular Hemoglobin 30 pg (27-31); Mean Corpuscular Volume 91 fL (80-94); Mean Platelet Volume 8 um3 (7.4-10.4); Nucleated Red Blood Cells % 0.1; Platelet Count 148 10^3/ul (150-450); Red Blood Count 4.56 10^6/ul (4.0-5.4); Red Cell Distribution Width 13 % (10.5-15); White Blood Count 10.3 10^3/ul (3.5-10.8)
--- NOTE | 2017-12-31 15:09 | CONS ---
CONSULTATION REPORT: DATE OF CONSULTATION: 12/31/17 ATTENDING ORTHOPEDIC PROVIDER: Dr. Marilu West. REASON FOR CONSULT: Right knee pain. HISTORY OF PRESENT ILLNESS: Rafael is a 77-year-old male who presented on 12/27 after a fall at home while he was standing and doing dishes. Patient states that the fall was the result of a sudden muscle spasm with origination in his right side though he is unsure if it originated from the back or lower down the right leg. He fell onto both knees, though he was still holding on to the counter. He had immediate pain of the right knee. He proceeded to call his son who then called the ambulance and the patient was brought into the emergency room. The patient states that prior to 12/27/17, he has never experienced a muscle spasm of this capacity but has been having muscle spasms of the right leg since, though less severe than the first. He describes the pain of the right knee as aching and annoying, but there is no severe pain. Pain is worse with movement. It is better when he is still. Even with slight movements, he does sometimes experience extreme spasm of the right lower extremity musculature, mostly localized to the area just above the knee. He confirms decreased sensation of the right lateral knee, which does not radiate from the back and does not radiate up or down the leg from this location. The patient states that he does not believe he had this numbness prior to the fall on 12/27/17. He denies any tingling or weakness of the right lower extremity. The patient has a history of a right knee arthroplasty in 2004 in [place]. Locally, he sees Dr. Saleem. 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 The patient follows with Dr. Martinez for pain management. Additionally, the patient has a history of lumbar decompression, roughly 9 years ago. PAST MEDICAL HISTORY: Significant for: 1. Hypertension. 2. AFib. PAST SURGICAL HISTORY: 1. Right total knee replacement. 2. Lumbar decompression. 3. Tonsillectomy. ALLERGIES: No known drug allergies. SOCIAL HISTORY: Former smoker. The patient lives alone. Occasional alcohol use. REVIEW OF SYSTEMS: General: No dizziness or lightheadedness. No generalized fatigue. Cardio: No chest pain. No irregular beats. Respiratory: No shortness of breath. No difficulty with breathing. Abdomen: No abdominal upset. No nausea, vomiting, diarrhea. Musculoskeletal: The patient confirms right knee pain. He denies any low back pain. He confirms muscle spasms of the right lower extremity. Neuro: The patient denies any weakness or tingling. He confirms decreased sensation of the right lateral knee, but otherwise no numbness, no decreased sensation. Skin: The patient denies any bruising, abrasions. Hematology: The patient denies any history of blood clots. PHYSICAL EXAMINATION: Vital Signs: Temperature 97.4, pulse rate 81, respiratory rate 16, oxygen saturation 97, blood pressure 132/71. General: The patient is well appearing, in no acute distress. He is sitting comfortably in a chair in his room. HEENT: Normocephalic, atraumatic. Cardiovascular: 2 + radial pulse with regular rhythm. Posterior tibial and dorsalis pedis pulses on the right lower extremity are 1+. Bilateral calves are soft and nontender without erythema, edema, or palpable cords. The right side does appear slightly cyanotic though it is not cold to touch and less than 2 seconds for capillary refill. Respiratory: Normal work and effort of breathing. Right lower extremity 5/5 dorsiflexion and plantarflexion versus 4/5 psoas, quads and hamstrings. Sensation is intact throughout the right lower extremity aside from a roughly golf ball sizing decreased area of sensation of the lateral knee. Musculoskeletal: Inspection of the right knee reveals no obvious bony deformity, no erythema, no ecchymosis, no lacerations or abrasions. The patient 's surgical scar is well healed. Palpation reveals tenderness over the lateral and superior aspect of the knee with a reported muscle spasm of the distal quadriceps. Muscle spasm is also elicited with palpation of the anterior and lateral thigh on the right side. Both varus and valgus stress cause pain lateral to the knee. There is minimal to no joint effusion noted. Passive range of motion is equivalent to active range of motion from 5 degrees of extension to 90 degrees of flexion, both of which endpoints elicits muscle spasm described to be again in the distal aspect of the thigh. The patient was very hesitant to elicit range of motion at the hip because anytime he engages the quadriceps, he feels muscle spasm in the anterior thigh. He can produce minimal straight leg raise on the right though with immediate onset of spasm and of attempt. He has no tenderness to palpation over the right hip. DIAGNOSTIC STUDIES: Right knee x-ray done on 12/27/17 confirms history of right knee arthroplasty with femoral and tibial components well seated. No evidence of joint effusion. Lumbar spine MRI done on 12/28/17 demonstrating multilevel degenerative disk disease with enhancement at L1-L2 implants without definite evidence of increased signal of the disk consistent with degenerative changes. Venous Doppler of the right lower extremity demonstrates no evidence of DVT. Right lower extremity CT scan demonstrates no evidence of hardware failure or periprosthetic fracture. It does demonstrate possible soft tissue injury or small joint effusion. ASSESSMENT: Right knee pain and muscle spasm. PLAN: Discussed with Dr. West who will see the patient this evening. RUY OCHOA [id number]/[facility]PS #: [id number] MTDD
--- NOTE | 2017-12-31 18:21 | PN ---
Progress Note - Progress Note Date of Service: 12/31/17 Note: Pt seen and examined please see dictated consult note from PA and me. Discussed with Dr Alvarez, will order MRI and ask for aspiration. ESR pending.
--- NOTE | 2017-12-31 23:11 | CONS ---
CONSULTATION REPORT: DATE OF CONSULT: 12/31/17 CHIEF COMPLAINT: Right knee pain. CONSULTING PROVIDER: Dr. Alvarez. HISTORY OF PRESENT ILLNESS: Briefly, Rafael is a 77-year-old male who presented on 12/27/17 after a fall at home when he was standing and doing dishes. He said he had significant amount of pain and spasming in his right quadriceps that caused him to fall down and then he had difficulty weightbearing. He was brought to the ER and he has been worked up for these unexplained spasms. He has undergone a lumbar spine MRI. He has got severe pain in the right leg, difficulty ambulating, particularly difficulty with stairs. He does report a history in July where he sustained a fall and was having pain in the knee. Dr. Saleem previously worked him up for potential suspected infection versus prosthetic loosening. He states that he did resolve somewhat, but he was having difficulties anyway mobilizing. He does have a history of total knee replacement that was done in 2004 by a surgeon in [place]. He has been following here locally with Dr. Saleem for his knee. He does state that his initial total knee replacement was in 2004 and then about 3 weeks after his surgery, he ended up developing MRSA and underwent I and D and antibiotic exchange. He has had no issues since then. He states that this most recent injury issue, he again was standing at the table in the kitchen doing dishes and he felt significant spasms in the knee. He feels that the spasms occur randomly. He notes that it has been worse since this most recent admission, but he has had difficulties with the knee since at least fall of last year. He denies any recent illnesses. No fevers or chills. The pain is worse with movement. He has difficulty on full extension and with deep flexion. Pain is about the distal aspect of his femur. After the fall in July, he noticed that he was having difficulty ambulating and uses a cane, which he did not need prior to that fall. PAST MEDICAL HISTORY: Significant for hypertension, atrial fibrillation. PAST SURGICAL HISTORY: Significant for right total knee replacement in 2004, lumbar decompression, tonsillectomy. ALLERGIES: None. SOCIAL HISTORY: Former smoker. He lives alone. Occasional alcohol use. REVIEW OF SYSTEMS: A 14-point review of systems was reviewed with the patient, significant for any recent injury. He does have laterally based knee pain as well, bursitis, spasms in the right leg. No numbness or tingling. No fevers or chills. He does report some calf discomfort today after he had been walking around the therapy, otherwise no chest pain, shortness of breath and 14-point review of systems is otherwise negative. PHYSICAL EXAM: He is in no acute distress. He is well developed, well nourished. He is alert and oriented x3. Temperature of 97.9, pulse of 89, respiratory rate 16, O2 is 96% on room air, blood pressure 113/88. He is in no acute distress. He is well developed, well nourished. He is sitting in the hospital bed, I am able to make him lie down, but it is a struggle for him. He needs assistance with his right leg extending and then getting it back on to the bed. Examination of the right knee demonstrates the skin is intact. There is no erythema or warmth. He is not specifically tender to palpation. There is no obvious effusion. Range of motion is about 5 degrees to about 95 degrees. His calf is soft and nontender. He is sensate to light touch about the first dorsal webspace, medial, lateral, dorsal, and plantar foot. Not specifically tender to touch throughout the proximal pole of the patella and there is no obvious defect. He is able to do straight leg raise, though he does have about 5 to 10 degrees extensor lag. There is no obvious deformity and no obvious defects of the quadriceps or patellar tendon. He has brisk cap refill. DIAGNOSTIC STUDIES/LAB DATA: X-rays were nonweightbearing films on 12/27/17 that demonstrate total knee replacement. There may be some mild osteolysis. It is a nonoptimal film and they are nonweightbearing films, there is no evidence of fracture. CT scan obtained today demonstrates no fracture dislocation. There is possible small joint effusion, although it is difficult to assess. No evidence of rupture of the patella or quadriceps tendon. He did have a 3-phase bone scan on 09/14/17, which demonstrated increased activity, but no obvious osteolysis or loosening of the component. Labs obtained today demonstrated white count of 10.3, hematocrit 41, platelet count 148,000, ESR 19, CRP 17.22. ASSESSMENT AND PLAN: He has had trauma to his knee twice in the last several months since the fall and he has had difficulty ambulating for several months and is coupled by this recent issue. It is possible he does have a quadriceps injury. He has history of a total knee arthroplasty on the right side that had an MRSA infection, although it was treated appropriately and he had no symptoms currently. He is having pain. He had initial fall in July and he has had subsequent issue recently with spasms. There could be a couple of etiologies, he could have a partial tear of his quadriceps. We will order an MRI to evaluate for any evidence of quadriceps or patellar tendon rupture, although clinically it has been difficult to assess that he has one. I would also ask that I aspirate any fluid in the joint to assess for any infection. He is inflammatory and infection labs are not very remarkable, so I think infection is low risk, but I do think he does have likely loosening and wear of his component and he may be a candidate for revision knee arthroplasty. Of course, this would not need to be done on an acute basis, it can be done more outpatient. I will follow up on the MRI tomorrow with the patient. He is able to ambulate with physical therapy. I think ultimately if the MRI does not show definitive quadriceps tear, he could wisely be followed up outpatient for possible evaluation for joint revision. We will follow in the hospital with him. [id number]/[facility] #: [id number] DEB
[2018-01-01] MEDS: traMADol TAB* 50 MG PO PRN ×2 (04:24→17:17)
[2018-01-01] MEDS: oxyCODONE TAB* 5 MG TAB PO PRN ×3 (04:24→21:41)
[2018-01-01] MEDS: Omeprazole CAP* 20 MG PO SCH (04:54)
[2018-01-01] MEDS: Docusate CAP* 100 MG PO SCH ×2 (09:55→21:41)
[2018-01-01] MEDS: Rivaroxaban TAB(*) 20 MG TAB PO SCH (09:58)
--- NOTE | 2018-01-01 11:28 | PN ---
Progress Note - Progress Note Date of Service: 01/01/18 SOAP: Subjective: [] Patient seen OOB in chair. He continues to have intermittent spasm sensation of RLE musculature/ knee. He reports tolerating assisted walking well. Denies feeling of fever or chills. Objective: [] Vital Signs Temp 97.9 F 01/01/18 07:51 Pulse 84 01/01/18 07:51 Resp 16 01/01/18 08:00 BP 140/81 01/01/18 07:51 Pulse Ox 90 01/01/18 07:51 Intake & Output 12/31/17 01/01/18 01/01/18 18:59 06:59 18:59 Intake Total 1360 680 100 Output Total 975 1325 Balance 385 -645 100 Weight 225 lb 14.4 oz Intake: Oral 1360 680 100 Output: Urine 975 1325 Other: # Bowel Movements 0 Laboratory Last Values WBC 10.3 10^3/ul (3.5-10.8) 12/31/17 11:33 RBC 4.56 10^6/ul (4.0-5.4) 12/31/17 11:33 Hgb 13.7 g/dl (14.0-18.0) L 12/31/17 11:33 Hct 41 % (42-52) L 12/31/17 11:33 MCV 91 fL (80-94) 12/31/17 11:33 MCH 30 pg (27-31) 12/31/17 11:33 MCHC 33 g/dl (31-36) 12/31/17 11:33 RDW 13 % (10.5-15) 12/31/17 11:33 Plt Count 148 10^3/ul (150-450) L 12/31/17 11:33 MPV 8 um3 (7.4-10.4) 12/31/17 11:33 Neut % (Auto) 65.6 % (38-83) 12/31/17 11:33 Lymph % (Auto) 21.5 % (25-47) L 12/31/17 11:33 Lamar % (Auto) 9.3 % (0-7) H 12/31/17 11:33 Eos % (Auto) 3.0 % (0-6) 12/31/17 11:33 Baso % (Auto) 0.6 % (0-2) 12/31/17 11:33 Absolute Neuts (auto) 6.7 10^3/ul (1.5-7.7) 12/31/17 11:33 Absolute Lymphs (auto) 2.2 10^3/ul (1.0-4.8) 12/31/17 11:33 Absolute Monos (auto) 1.0 10^3/ul (0-0.8) H 12/31/17 11:33 Absolute Eos (auto) 0.3 10^3/ul (0-0.6) 12/31/17 11:33 Absolute Basos (auto) 0.1 10^3/ul (0-0.2) 12/31/17 11:33 Absolute Nucleated RBC 0 10^3/ul 12/31/17 11:33 Nucleated RBC % 0.1 12/31/17 11:33 ESR 19 mm/Hr (0-40) 12/31/17 16:35 Sodium 136 mmol/L (133-145) 12/28/17 01:55 Potassium 4.1 mmol/L (3.5-5.0) 12/28/17 01:55 Chloride 101 mmol/L (101-111) 12/28/17 01:55 Carbon Dioxide 31 mmol/L (22-32) 12/28/17 01:55 Anion Gap 4 mmol/L (2-11) 12/28/17 01:55 BUN 13 mg/dL (6-24) 12/28/17 01:55 Creatinine 0.79 mg/dL (0.67-1.17) 12/28/17 01:55 Est GFR ( Amer) 122.6 (>60) 12/28/17 01:55 Est GFR (Non-Af Amer) 95.4 (>60) 12/28/17 01:55 BUN/Creatinine Ratio 16.5 (8-20) 12/28/17 01:55 Glucose 97 mg/dL (70-100) 12/28/17 01:55 POC Glucose (mg/dL) 112 mg/dL (70-100) H 12/28/17 22:12 Calcium 9.1 mg/dL (8.6-10.3) 12/28/17 01:55 Total Bilirubin 1.00 mg/dL (0.2-1.0) 12/28/17 01:55 AST 23 U/L (13-39) 12/28/17 01:55 ALT 21 U/L (7-52) 12/28/17 01:55 Alkaline Phosphatase 49 U/L (34-104) 12/28/17 01:55 C-Reactive Protein 17.22 mg/L (< 5.00) H 12/31/17 11:33 Total Protein 6.7 g/dL (6.4-8.9) 12/28/17 01:55 Albumin 3.7 g/dL (3.2-5.2) 12/28/17 01:55 Globulin 3.0 g/dL (2-4) 12/28/17 01:55 Albumin/Globulin Ratio 1.2 (1-3) 12/28/17 01:55 General: Sitting in chair, NAD. Calm and cooperative RLE: Inspection of knee with no erythema and no obvious effusion. No point tenderness today. Comfortably tolerates palpation of knee joint and thigh without tenderness and without spasm. ROM knee 5-100 degrees with flexion limited by feeling of tightness. Able to straight leg raise. BL LE: calves supple and nontender without erythema, edema or palpable cords. Assessment: []Right knee pain Plan: []MRI /with aspiration if effusion present, Bone scan WBAT PT/OT
--- NOTE | 2018-01-01 13:36 | PN ---
Subjective Date of Service: 01/01/18 Interval History: Patient seen and examined. Many questions about discharge and rehab. Concerned about leaving tomorrow. Discussed the additional imaging today and potential recommendations from ortho. Patient states he's still not able to ambulate, still having spasms and pain. Denies SOB, no chest pain, no n/v. Family History: Unchanged from Admission Social History: Unchanged from Admission Past Medical History: Unchanged from Admission Objective Active Medications: Albuterol (Ventolin 2.5 Mg/3 Ml Neb.Leanna*) 2.5 mg INH Q2H PRN PRN Reason: SOB/WHEEZING Diazepam (Valium Tab(*)) 5 mg PO Q8H PRN PRN Reason: spasm Last Admin: 12/29/17 09:22 Dose: 5 mg Docusate Sodium (Colace Cap*) 200 mg PO BID [facility] Last Admin: 01/01/18 09:55 Dose: 200 mg Omeprazole (Prilosec Cap*) 20 mg PO DAILY@0600 [facility] Last Admin: 01/01/18 04:54 Dose: 20 mg Ondansetron HCl (Zofran Inj*) 4 mg IV Q6H PRN PRN Reason: NAUSEA Oxycodone HCl (Roxycodone Tab*) 10 mg PO Q3H PRN PRN Reason: PAIN Last Admin: 01/01/18 04:24 Dose: 10 mg Rivaroxaban (Xarelto(*)) 20 mg PO DAILY [facility] Last Admin: 01/01/18 09:58 Dose: 20 mg Tramadol HCl (Ultram*) 50 mg PO Q6H PRN PRN Reason: PAIN Last Admin: 01/01/18 04:24 Dose: 50 mg Vital Signs - 8 hr 01/01/18 01/01/18 01/01/18 06:32 07:51 08:00 Temperature 97.9 F Pulse Rate 84 Respiratory 16 18 16 Rate Blood Pressure 140/81 (mmHg) O2 Sat by Pulse 90 Oximetry Oxygen Devices in Use Now: None Eyes: No Scleral Icterus, PERRLA Ears/Nose/Mouth/Throat: Mucous Membranes Moist Neck: NL Appearance and Movements; NL JVP, Trachea Midline Respiratory: Symmetrical Chest Expansion and Respiratory Effort, Clear to Auscultation Cardiovascular: NL Sounds; No Murmurs; No JVD, RRR Abdominal: NL Sounds; No Tenderness; No Distention Extremities: No Edema, - - disoloration to feet Neurological: Alert and Oriented x 3 Nutrition: Taking PO's Result Diagrams: 12/31/17 11:33 12/28/17 01:55 Additional Lab and Data: . Diagnostic Imaging: MRI LUMBAR SPINE Patient Name: FUAD ESTRADA Medical Record#: [id number] Ordering Physician: Kimberley Vazquez NP Acct.#: [id number] : 1940 Age: 77 Sex: M Location: [address] [place] [address] MEDICAL Exam Date: 12/28/171100 ADM Status: ADM Vibha Order Information: MRI LUMBAR SPINE W/WO Accession Number: [id number] CPT: 11851 Indication: Prior lumbar discectomy. Inability to bear weight. Image sequences: Sagittal T1, T2, STIR, axial T1 and T2-weighted images of the lumbar spine were obtained. 20 mL of ProHance was injected and postcontrast sagittal and axial fat-suppressed T1-weighted images were repeated. The vertebral bodies appear normal in height. Heterogeneous bone marrow signal is noted consistent with conversion of yellow marrow to red marrow. Overall appearance does not appear to be significantly changed since November 24, 2014. At L5-S1 degenerative disc disease. Spondylitic ridge with broad-based protrusion is noted bilaterally. There is narrowing of the foramen bilaterally. This is unchanged from previous exam. At L4-L5 there is degenerative disc disease noted. There is a far right lateral disc protrusion which appears to impinge upon the right exiting nerve root. This appears to be similar to that seen on prior exam. Mild left foraminal stenosis is noted. At L3-L4 spondylitic ridge flattens the thecal sac. Facet arthropathy is noted. Broad-based disc protrusions appears to narrow both intervertebral foramen worse on the right than on the left. At L2-L3 degenerative disc disease is noted. Spondylitic ridge flattens the thecal sac. Mild to moderate facet hypertrophy is noted. At L1-L2 broad-based protrusion flattens the thecal sac. Moderate facet hypertrophy is noted. At T12-L1 disc space appears unremarkable. The postcontrast images demonstrate complete enhancement L1-L2. No evidence of increased signal is noted in the disc and this likely represents degenerative disc disease. No other areas of epidural enhancement is noted. IMPRESSION: Multilevel degenerative disc disease. There is enhancement at the L1 -L2 endplates without definite evidence of increased signal of the disc consistent with degenerative changes. Multilevel degenerative disc disease with multiple areas of foraminal stenosis is present. Please see above for specific disc levels. XRAY RIGHT KNEE Patient Name: FUAD ESTRADA Medical Record#: [id number] Ordering Physician: Nilay Cesar MD Acct.#: [id number] : 1940 Age: 77 Sex: M Location: EMERGENCY DEPARTMENT Exam Date: 12/27/172034 ADM Status: REG ER Order Information: KNEE RIGHT 4+ VWS Accession Number: [id number] CPT: 45848 INDICATION: Knee pain COMPARISON: Right femur July 22, 2017 TECHNIQUE: AP, lateral, and sunrise were obtained. FINDINGS: There is right knee arthroplasty. Both femoral and tibial components appear well seated. There is no evidence of a joint effusion. There are vascular calcifications. IMPRESSION: RIGHT KNEE ARTHROPLASTY. <Electronically signed by Robby Ram MD in OV> 12/27/172115 Dictated By: Robby Ram MD Dictated Date/Time: 12/27/172115 Transcribed Date/Time: 12/27/172100 Copy to: Assess/Plan/Problems-Billing Assessment: This is a 77 year old male patient with hx of OA, right TKA, s/p fall, spasm, pain and paresthesias and inability to bear weight or ambulate unassisted. - Patient Problems (1) Fall from standing Code(s): W19.XXXA - UNSPECIFIED FALL, INITIAL ENCOUNTER SNOMED Code(s): 7535013 Comment: - NS and ortho consults appreciated - Pending bone scan and MRI knee today - MRI lumbar as above - Fall precautions - PT as tolerated (2) Knee pain, right Code(s): M25.561 - PAIN IN RIGHT KNEE SNOMED Code(s): 42188967 Comment: - Prosthesis intact, does not appear to be infected - Pending MRI and bone scan today - Appreciate recs from ortho (3) Weakness of both lower extremities Code(s): R29.898 - OTH SYMPTOMS AND SIGNS INVOLVING THE MUSCULOSKELETAL SYSTEM SNOMED Code(s): 6553950 Comment: - MRI lumbar obtained, report as above - Per NS, does not appear to be radicular in nature (4) Hypertension Code(s): I10 - ESSENTIAL (PRIMARY) HYPERTENSION SNOMED Code(s): 30913165 Comment: Losartan and metoprolol on hold. (5) Atrial fibrillation Code(s): I48.91 - UNSPECIFIED ATRIAL FIBRILLATION SNOMED Code(s): 94687043 Comment: - Continue on rivaroxaban; metoprolol on hold. (6) DVT prophylaxis Code(s): YEC6294 - SNOMED Code(s): 247029612 Comment: - On xarelto (7) Full code status Code(s): Z78.9 - OTHER SPECIFIED HEALTH STATUS SNOMED Code(s): 734433862 Status and Disposition: Likely DC to rehab tomorrow if no surgical intervention warranted
--- NOTE | 2018-01-01 14:46 | RAD ---
INDICATION: Right knee pain. Possible infection. Cellulitis. Recent injury. COMPARISON: CT December 31, 2017; three-phase bone scan September 14, 2017 TECHNIQUE: Following the intravenous administration of 8.9 millicuries of technetium 99m HDP, a three-phase bone scan was performed with attention to the knees FINDINGS: There is increased activity on all 3 phases. Therefore, osteomyelitis cannot be excluded. However, given the history of trauma and possible infection, both cellulitis and/or hyperemia from trauma could account for increased activity on the on first 2 phases. There is increased periprosthetic activity on the delayed images which can also be seen with loosening. This was present previously. Today's findings are nonspecific IMPRESSION: THE BONE SCAN IS ABNORMAL IN THAT THERE IS INCREASED ACTIVITY ON ALL 3 PHASES. THE REASONS OUTLINED ABOVE THE FINDINGS ARE NONSPECIFIC. CPT II Codes: 3570F PQRS (Nuc med compare/no prior)
--- NOTE | 2018-01-01 17:13 | PN ---
Progress Note - Progress Note Date of Service: 01/01/18 SOAP: Subjective: Pt with knee pain right now. Was able to work with PT and get to bathroom today. Cannot do stairs. Potential d/c to rehab tomorrow. Objective: Temp Pulse Resp BP Pulse Ox 98.3 F 97 18 157/85 98 01/01/18 11:40 01/01/18 11:40 01/01/18 15:54 01/01/18 11:40 01/01/18 11:40 NAD. In bed. Spasms randomly. RLE: no erythema or warmth. No effusion. TTP slightly about quad. ROM 5-95. calf soft, nontender. SILT grossly. brisk cap refill Assessment: painful TKA. Plan: Not sure why bone scan ordered as that does not help with treatment plan or decision making. would recommend dispo with knee immobilizer as needed. transition to hinged knee brace for extra stability discussed that pt likely needs TKA revision. Would have him see Dr Mckeon for that Pt can however follow up with me for a hinged knee brace. Would strongly advise against stairs until he is stronger or has revision surgery appreciate consult. will sign off for now pls call with questions.
--- NOTE | 2018-01-01 17:45 | PN ---
Hospitalist Progress Note Date of Service: 01/01/18 Called to bedside for re-eval, patient's WOB increasing as is heart rate (afib with RVR) and respiratory rate in the 40's. O2 increased with no effect, placed on his CPAP, ABG drawn, digoxin 0.125IVP for rate control, lopressor 5mg IVP, lasix 60mg IVP, Stat CXR, accucheck and lea. Will transfer to ICU for bipap and closer monitoring. Wet read on CXR shows additional fluid overload. Coordinated with staff, Dr. Garza and Dr. Guy.
--- NOTE | 2018-01-01 20:22 | RAD ---
Indication: RIGHT total knee replacement. Previous I and D for infection. Fall December 27, 2017. Pain and inability to ambulate. Comparison: January 01, 2018 three-phase bone scan and December 31, 2017 CT. Technique: Roseonly [place] 1.5 Sadie FU311D with GEM suite. Multiplanar T1 and T2-weighted MRI of the RIGHT knee. Motribe metallic artifact suppression algorithm. Report: Artifact from the joint prosthesis limits image quality despite GE MAVRIC SL metallic artifact suppression. No compelling evidence for prosthesis loosening. There is diffuse soft tissue edema involving the subcutaneous tissue plane and skeletal musculature without evidence for a loculated soft tissue plane fluid collection. Only trace physiologic range volume of joint fluid. There is an incomplete oblique transverse oriented linear low signal fracture at the distal metaphysis of the femur extending to the anterior cortex with subtle flanking bone marrow edema. No additional fracture evident. Sharply demarcated 1.5 cm AP by 1.3 cm transverse by 1.9 cm cephalocaudal T2 hyperintense T1 hypointense intraosseous ganglion at the lateral tibial plateau subjacent to the prosthetic component without surrounding bone marrow edema is likely chronic and low suspicion. [place] images saved on the [facility] PACS. IMPRESSION: 1. The constellation of findings is most consistent with an incomplete nondisplaced fracture at the distal metaphysis of the femur given history of onset of pain post recent fall. 2. No compelling evidence for prosthesis loosening or septic arthritis/osteomyelitis.
[2018-01-02] MEDS: oxyCODONE TAB* 5 MG TAB PO PRN ×4 (01:04→23:42)
[2018-01-02] MEDS: traMADol TAB* 50 MG PO PRN ×3 (01:08→20:28)
[2018-01-02] MEDS: Omeprazole CAP* 20 MG PO SCH (06:30)
[2018-01-02] MEDS: Rivaroxaban TAB(*) 20 MG TAB PO SCH (09:01)
[2018-01-02] MEDS: Docusate CAP* 100 MG PO SCH ×2 (09:01→20:15)
--- NOTE | 2018-01-02 15:59 | PN ---
Progress Note - Progress Note Date of Service: 01/02/18 SOAP: Subjective: []Patient seen at bedside. Pain of his RLE is improving, but is aggravated with physical therapy. Objective: [] Vital Signs Temp 97.7 F 01/02/18 11:16 Pulse 104 01/02/18 11:16 Resp 17 01/02/18 13:18 BP 128/83 01/02/18 11:16 Pulse Ox 92 01/02/18 11:16 Intake & Output 01/01/18 01/02/18 01/02/18 18:59 06:59 18:59 Intake Total 200 0 540 Output Total 0 350 Balance 200 0 190 Weight 225 lb 14.4 oz Intake: Oral 200 0 540 Output: Urine 0 350 Other: Estimated Void Medium Medium # Bowel Movements 0 # Voids 2 1 2 Laboratory Last Values WBC 10.3 10^3/ul (3.5-10.8) 12/31/17 11:33 RBC 4.56 10^6/ul (4.0-5.4) 12/31/17 11:33 Hgb 13.7 g/dl (14.0-18.0) L 12/31/17 11:33 Hct 41 % (42-52) L 12/31/17 11:33 MCV 91 fL (80-94) 12/31/17 11:33 MCH 30 pg (27-31) 12/31/17 11:33 MCHC 33 g/dl (31-36) 12/31/17 11:33 RDW 13 % (10.5-15) 12/31/17 11:33 Plt Count 148 10^3/ul (150-450) L 12/31/17 11:33 MPV 8 um3 (7.4-10.4) 12/31/17 11:33 Neut % (Auto) 65.6 % (38-83) 12/31/17 11:33 Lymph % (Auto) 21.5 % (25-47) L 12/31/17 11:33 [place] % (Auto) 9.3 % (0-7) H 12/31/17 11:33 Eos % (Auto) 3.0 % (0-6) 12/31/17 11:33 Baso % (Auto) 0.6 % (0-2) 12/31/17 11:33 Absolute Neuts (auto) 6.7 10^3/ul (1.5-7.7) 12/31/17 11:33 Absolute Lymphs (auto) 2.2 10^3/ul (1.0-4.8) 12/31/17 11:33 Absolute Monos (auto) 1.0 10^3/ul (0-0.8) H 12/31/17 11:33 Absolute Eos (auto) 0.3 10^3/ul (0-0.6) 12/31/17 11:33 Absolute Basos (auto) 0.1 10^3/ul (0-0.2) 12/31/17 11:33 Absolute Nucleated RBC 0 10^3/ul 12/31/17 11:33 Nucleated RBC % 0.1 12/31/17 11:33 ESR 19 mm/Hr (0-40) 12/31/17 16:35 Sodium 136 mmol/L (133-145) 12/28/17 01:55 Potassium 4.1 mmol/L (3.5-5.0) 12/28/17 01:55 Chloride 101 mmol/L (101-111) 12/28/17 01:55 Carbon Dioxide 31 mmol/L (22-32) 12/28/17 01:55 Anion Gap 4 mmol/L (2-11) 12/28/17 01:55 BUN 13 mg/dL (6-24) 12/28/17 01:55 Creatinine 0.79 mg/dL (0.67-1.17) 12/28/17 01:55 Est GFR ( Amer) 122.6 (>60) 12/28/17 01:55 Est GFR (Non-Af Amer) 95.4 (>60) 12/28/17 01:55 BUN/Creatinine Ratio 16.5 (8-20) 12/28/17 01:55 Glucose 97 mg/dL (70-100) 12/28/17 01:55 POC Glucose (mg/dL) 112 mg/dL (70-100) H 12/28/17 22:12 Calcium 9.1 mg/dL (8.6-10.3) 12/28/17 01:55 Total Bilirubin 1.00 mg/dL (0.2-1.0) 12/28/17 01:55 AST 23 U/L (13-39) 12/28/17 01:55 ALT 21 U/L (7-52) 12/28/17 01:55 Alkaline Phosphatase 49 U/L (34-104) 12/28/17 01:55 C-Reactive Protein 17.22 mg/L (< 5.00) H 12/31/17 11:33 Total Protein 6.7 g/dL (6.4-8.9) 12/28/17 01:55 Albumin 3.7 g/dL (3.2-5.2) 12/28/17 01:55 Globulin 3.0 g/dL (2-4) 12/28/17 01:55 Albumin/Globulin Ratio 1.2 (1-3) 12/28/17 01:55 General: well appearing, NAD RLE: No erythema or effusion of right knee. ROM 5-95 degrees. Calf supple and nontender without erythema, edema or palpable cords. Hinged knee brace fitted and patient can comfortably range the knee 5-90 as brace is set. Assessment: []Right femur with incomplete nondisplaced distal metaphysis fracture Plan: []NWB RLE Hinged brace 5-90 degrees ROM F/U Dr West in office next week ASA 325 qd for DVT prophylaxis
[2018-01-03] MEDS: Omeprazole CAP* 20 MG PO SCH (05:54)
[2018-01-03] MEDS: oxyCODONE TAB* 5 MG TAB PO PRN (05:59)
--- NOTE | 2018-01-03 06:38 | PN ---
Progress Note - Progress Note Date of Service: 01/29/18 SOAP: Subjective: Pt seen and examined. MRI finally done. Objective: AFVSS NAD. RLE: skin intact. spasms, ROM 5-95. SILT, brisk cap refill. calf soft and nontender MRI demonstrated possible fracture which may be notching at fracture site Assessment: A/P 77 yo M with presumed distal femur fx Plan: TDWB Knee brace with spasms and walking if needed pain control f/u out patient with me next week
[2018-01-03 07:48] VITALS: BP 128/74
[2018-01-03] MEDS: Docusate CAP* 100 MG PO SCH (08:42)
[2018-01-03] MEDS: Rivaroxaban TAB(*) 20 MG TAB PO SCH (08:42)
--- NOTE | 2018-01-03 12:47 | DS ---
CC: Dr. Sanjiv Rodriguez* DATE OF ADMISSION: 12/27/2017. DATE OF DISCHARGE: 01/03/2018. ATTENDING PHYSICIAN FOR THIS HOSPITALIZATION: Dr. Shyam Cobb. MY ATTENDING PHYSICIAN TODAY: Dr. Kim Cadet* (dictated by Adan Crystal NP). HOSPITAL COURSE: This is a very pleasant, 77-year-old male patient who sustained a mechanical fall from standing. The patient states that his knee felt weak and his quadriceps felt weak on the right lower extremity. It felt like he was having a significant amount of falls at home. What prompted him to come to the ER, however, was he came down bilaterally on both knees and then had severe pain, was not able to stand or bear weight on the right lower extremity, and then called EMS services and was brought to the emergency department for evaluation. The patient had some confounding factors. He does have low back pain, radicular in nature that was also radiating down the right side, and also the patient has a prosthetic knee. He had a right total knee arthroplasty some years ago, so it was difficult to discern where his pain was emanating from. Initial x-rays of the knee showed the prosthesis in good placement, that it was not loose, and there was no subluxation or dislocation of his device or his knee; however, his pain persisted and again also had some low back pain and radiating spasm-like pain that the patient was describing. We did a lumbar MRI which showed a significant amount of lumbar disk disease. The patient did have decompression surgery some years ago; however, his physical exam did not support lumbar radicular etiology for his inability to ambulate on the right leg. Having Orthopedics also involved on the case, the patient went for a bone scan and then ultimately an MRI of the right knee which actually showed a small distal nondisplaced right periprosthetic femur fracture. The patient was placed in a hinged brace, instructed to be nonweightbearing. He was cleared by Orthopedics for discharge. He will have to follow-up with them in a week and determine if he is going to have revision knee surgery or not. PHYSICAL EXAM: On the day of discharge, vital signs are temperature 98.1, blood pressure 128/74, heart rate 88, respiratory rate 16, satting at 93 to 94 percent on room air. HEENT: The patient is atraumatic, normocephalic. PERRLA with nonicteric sclerae. Neck: Supple, nontender. No JVD noted. No thyromegaly appreciated. Lungs: Clear bilaterally to auscultation with no wheezing, rhonchi or rales, slightly diminished at the bases. Heart rate is in the 60s. He is in A-fib. Rhythm is irregular. No murmurs, gallops or rubs noted. Abdomen: Soft, nontender, nondistended. Positive bowel sounds all four quadrants. : Deferred. Musculoskeletal: There is no clubbing and no edema. He does have some bluish discoloration to the feet and some palpable pain, but he does have +2 distal pulses palpable. He has some point tenderness over the right knee and some edema, roscoe- incisional edema around his approximated wound from his previous surgery. There is no erythema noted. Neurologic: He is grossly intact with no focal deficits. Psychiatric: He is cooperative and appropriate. LABORATORY DATA: WBC 10.3, RBC 4.56, hemoglobin 13.7, hematocrit 41, platelets 148; sodium 136, potassium 4.1, chloride 101, BUN 13, creatinine 0.79, GFR 95.4 , glucose 97, calcium 9.1, bilirubin 1.00, AST 23, ALT 21, alk phos 49, CRP 17.22, protein 6.7, albumin 3.7. IMAGIN. MRI of the right knee dated 12/31/2017 shows constellation of findings most consistent with an incomplete nondisplaced fracture of the distal metaphysis of the femur given history of onset of pain and recent fall. No compelling evidence for prosthesis loosening, septic arthritis or osteomyelitis noted. 2. Lumbar spine MRI dated 12/28/2017: Impression: Multilevel degenerative disk disease. There is enhancement at the L1-2 endplates without definite evidence of increased signal of the disk consistent with degenerative changes. Multilevel degenerative disk disease with mid left foraminal stenosis on L4 to L5. Narrowing of the foramina bilaterally with a broad based disk protrusion L5 to S1. MEDICATIONS AT THE TIME OF DISCHARGE: 1. Xarelto 20 mg p.o. daily. 2. Metoprolol Succinate 50 mg p.o. b.i.d. 3. Losartan 50 mg p.o. daily. 4. Oxycodone 10 mg q.6 hours as needed for pain. 5. Omeprazole 20 mg daily. 6. Docusate 200 mg two times a day. 7. Diazepam 5 mg q.8 hours as needed. DISCHARGE DIAGNOSES: 1. Mechanical fall with right femur distal fracture. 2. History of osteoarthritis with joint replacement. 3. Lumbar disk disease. 4. Hypertension. 5. Gait dysfunction with inability to ambulate. DISPOSITION: The patient was discharged in stable condition to [facility]. All questions were answered. The patient was agreeable to short term acute rehab to get his strength back while he decides whether he is going to have knee revision surgery or not. The patient was instructed to follow- up with Dr. West in the next seven days and also his primary care physician when he is discharged from rehab, Dr. Sanjiv Rodriguez. ADAN CRYSTAL, COLLECTOR OF INTERNAL REVENUE [id number]/[facility] #: [id number] DEB
== END 2018-01-03 13:15 | DRG 534 ==
LOC: ED 19:51 → MED 12-28 02:21 → OBSVTOIN 12-28 12:00
PROVIDERS: ADMIT Hospitalist; ATTEND Internal Medicine
DX: S72.491A Other fracture of lower end of right femur, initial encounter for closed fracture (principal); I48.91 Unspecified atrial fibrillation; M97.11XA Periprosthetic fracture around internal prosthetic right knee joint, initial encounter; E66.9 Obesity, unspecified; I10 Essential (primary) hypertension; Z96.651 Presence of right artificial knee joint; W18.39XA Other fall on same level, initial encounter; G89.29 Other chronic pain; M54.9 Dorsalgia, unspecified; M19.90 Unspecified osteoarthritis, unspecified site; R53.1 Weakness; M54.16 Radiculopathy, lumbar region; R20.2 Paresthesia of skin; M62.838 Other muscle spasm; M51.36 Other intervertebral disc degeneration, lumbar region; M48.061 Spinal stenosis, lumbar region without neurogenic claudication; R26.9 Unspecified abnormalities of gait and mobility; Z87.891 Personal history of nicotine dependence; Z72.89 Other problems related to lifestyle; Z79.01 Long term (current) use of anticoagulants; Z82.49 Family history of ischemic heart disease and other diseases of the circulatory system; Z80.7 Family history of other malignant neoplasms of lymphoid, hematopoietic and related tissues; Z80.3 Family history of malignant neoplasm of breast; Z68.31 Body mass index [BMI] 31.0-31.9, adult; Y92.000 Kitchen of unspecified non-institutional (private) residence as the place of occurrence of the external cause; Z98.42 Cataract extraction status, left eye; Z98.41 Cataract extraction status, right eye
CPT/HCPCS: 36415; 72158; 78315; 80053; 85025; 85652; 86140; 99283; A9270-GY; A9503; A9579; G0378; G8978-GP-CK; G8979-GP-CI; J1100; J2270

== ENCOUNTER 2018-07-26 12:21 | Emergency (ER) | payer MEDICARE, BC, OTHER ==
[2018-07-26 12:37] VITALS: BP 117/79
--- NOTE | 2018-07-26 13:26 | UC ---
Shortness of Breath HPI - HPI Summary HPI Summary: Patient presents to urgent care through ambulatory triage. Patient semi- symptoms and with a history of A. fib. Patient's lungs are also. Patient states progressively over the last 5-7 days he's noticed he gets more short of breath with activity. Patient states his cars parked up a hill from his apartment. Patient states he walks up a hill he's been getting more winded and has to sit and rest. Patient denies chest pain. No nausea vomiting. No diaphoresis. Patient states she's also notices more fatigued. Patient went to physical therapy yesterday which is been in for quite some time for his right knee. Patient states that physical therapy yesterday he was tired so he went home which is unusual. Patient states he called his primary care doctor today who directed him to come for further evaluation. Patient denies changes in urine output. Patient denies edema. Patient without any complaints at the time of evaluation however he states he was short of breath after walking in from his car. Pt denies h/o VA, CVA, DM, renal dx Pt's medications reviewed this visit. - History of Current Complaint Chief Complaint: UCChestPain Stated Complaint: SOB/HEART PALPITATIONS Time Seen by Provider: 07/26/18 12:36 Hx Obtained From: Patient, Medical Records Onset/Duration: Gradual Onset Timing: Intermittent Episodes Lasting: - with ambulation - Allergy/Home Medications Allergies/Adverse Reactions: Allergies Allergy/AdvReac Type Severity Reaction Status Date / Time No Known Allergies Allergy Verified 07/26/18 12:31 Home Medications: Home Medications Ascorbic Acid TAB* [Vitamin C TAB*] 1,000 mg PO TID 07/26/18 [History Confirmed 07/26/18] Bilberry Fruit Extract [Bilberry] 80 mg PO QID 07/26/18 [History Confirmed 07/26] Garlic 1 each PO DAILY 07/26/18 [History Confirmed 07/26/18] Latanoprost 0.005%* [Xalatan 0.005%*] 1 drop BOTH EYES QPM 07/26/18 [History Confirmed 07/26/18] Losartan TAB* [Cozaar TAB*] 25 mg PO QAM 07/26/18 [History Confirmed 07/26/18] Metoprolol Tartrate TAB* [Lopressor TAB*] 12.5 mg PO QAM 07/26/18 [History Confirmed 07/26/18] Nocturia Pills 1 tab PO BID 07/26/18 [History] [place]-3 Fatty Acids/Fish Oil [[place] 3] 1 cap PO TID 07/26/18 [History Confirmed 07/26/18] Rivaroxaban TAB(*) [Xarelto 20 mg] 20 mg PO QAM 07/26/18 [History Confirmed ] Vitamin B Complex CAP* [B Complex CAP*] 1 cap PO DAILY 07/26/18 [History Confirmed 07/26/18] Vitamin THERAPEUTIC TAB* [Theragran TAB*] 1 tab PO DAILY 07/26/18 [History Confirmed 07/26/18] traMADol TAB* [Ultram*] 50 mg PO Q8H PRN 07/26/18 [History Confirmed 07/26/18] PMH/Surg Hx/FS Hx/Imm Hx Previously Healthy: Yes - MRSA right knee Cardiovascular History: Atrial Fibrillation Other History Of: Negative For: Anticoagulant Therapy - Surgical History Surgical History: Yes Surgery Procedure, Year, and Place: [facility] knee replacement,2004, needed I+D for infection. left ankle repair after fracture; 2012 orthopedic. [facility] SURGERY LUMBAR DECOMPRESSION L2-L5 07/19. cardiac ablation. tonsils. bilateral cataracts - Family History Known Family History: Positive: Hypertension - father Negative: Cardiac Disease, Diabetes - Social History Occupation: Retired Alcohol Use: Rare Alcohol Amount: 1 DRINK/MONTH Substance Use Type: None Smoking Status (MU): Former Smoker Type: Cigarettes Length of Time of Smoking/Using Tobacco: 1-2 PPD X 25 Years When Did the Patient Quit Smoking/Using Tobacco: 1976 - Immunization History Most Recent Influenza Vaccination: Fall 2016 Most Recent Tetanus Shot: up to date Most Recent Pneumonia Vaccination: in the past Review of Systems Constitutional: Negative Skin: Negative Eyes: Negative Respiratory: Shortness Of Breath Cardiovascular: Palpitations All Other Systems Reviewed And Are Negative: Yes Physical Exam - Summary Physical Exam Summary: Vital Signs Reviewed: Yes A+Ox3, no distress Eyes: Conjunctiva Clear, PER. EOM intact and full ENT: Hearing grossly normal TM x 2 clear, mmoist, uvula midline, no exudate, no erythema Neck: Positive: Supple Respiratory: Positive: No respiratory distress, no tachypnea, No accessory muscle use + CTA throughout no w/r Cardiovascular: RRR nl s1, s2 no m/r CBT <2 sec abd soft + BS nt/nd no guarding, no distension Musculoskeletal Exam: CHAVEZ x 4 without difficulty Strength Intact, ROM Intact Neurological: Positive: Alert, + sensation throughout Psychological: Positive: Normal Response To Family Skin: Positive: no rash, no ecchymosis Triage Information Reviewed: Yes Vital Signs: Initial Vital Signs Temp 97 F 07/26/18 12:30 Pulse 123 07/26/18 12:30 Resp 28 07/26/18 12:30 BP 117/79 07/26/18 12:30 Pulse Ox 96 07/26/18 12:30 Diagnostics - EKG Cardiac Rate: Tachycardia - 123 Cardiac Rhythm: Sinus: Normal - RBBB Ectopy: None ST Segment: Normal Shortness of Breath Dx - Course Course Of Treatment: Patient presents to urgent care reporting progressively over the last week he's had shortness of breath with activity. Patient denies chest pain. Patient states he had some palpitations yesterday that were brief and have not recurred. Patient without any complaints. No nausea or vomiting. No shortness of breath at rest. No fever no cough no chills. Patient does have a history of A. fib and is on Xarelto. Patient's primary doctor directed him here for evaluation today on review patient was noted to be tachycardic. Patient EKG shows a sinus tach with a right bundle-branch block. Attempts to compare old EKG were not identified in [place]. Discussed with patient concerns for multiple reasons for tachycardia. Recommend patient to emergency department. Patient adamant he wanted to drive himself. Patient wants to go [facility]. Patient does not have friends or family he can call for a ride. Discussed with patient regarding go by private vehicle. Patient states he understands. Patient will be leaving AMA. Paperwork reviewed with patient as well as with nursing patient. [place] Yessi Avila [place] [facility] [place] by [place]. Patient instructed to door puller, call 911 with any symptoms change. Patient states understanding and agreement with plan. - Differential Dx/Diagnosis Provider Diagnoses: WARREN. AMA. tachycardia Discharge - Sign-Out/Discharge Documenting (check all that apply): Patient Departure All imaging exams completed and their final reports reviewed: No Studies - Discharge Plan Condition: Stable Disposition: HOME Patient Education Materials: Dyspnea (ED), Against Medical Advice (ED), Tachycardia (ED) Referrals: Sanjiv Rodriguez MD [Primary Care Provider] - Additional Instructions: The doctor that evaluated you today thinks that you need additional testing that can be completed the emergency department. It is recommended that you go directly to emergency department for further evaluation. The doctor that evaluated you recommended an ambulance, but you declined. The doctor discussed with your risks of going by car - these risks include heart rhythm changes, progressive shortness of breath, permanent disability or . If your symptoms change - it is recommended that you door puller and call 911. This testing will be directed and decided by the provider that evalutets you at the emergency department. If pain becomes worse, you feel lightheaded, you have uncontrolled vomiting, or you have any other concerns while you are being driven to emergency department as recommended to pullover and contact 911. - Billing Disposition and Condition Condition: STABLE Disposition: Home
== END 2018-07-26 13:22 | disposition home or self-care (01) ==
LOC: UCCORT 12:21
DX: R06.00 Dyspnea, unspecified (principal); Z53.20 Procedure and treatment not carried out because of patient's decision for unspecified reasons; R00.0 Tachycardia, unspecified; Z79.01 Long term (current) use of anticoagulants; Z86.14 Personal history of Methicillin resistant Staphylococcus aureus infection; I48.91 Unspecified atrial fibrillation; Z87.891 Personal history of nicotine dependence
CPT/HCPCS: 93005; 99212; G0463

== ENCOUNTER 2018-07-26 14:10 | Observation (INO) | payer BC, MEDICARE, OTHER ==
--- NOTE | 2018-07-26 15:10 | RAD ---
INDICATION: Dyspnea, shortness of breath, palpitations 1 week duration. COMPARISON: January 08, 2013 TECHNIQUE: Dual energy PA and routine lateral views of the chest were obtained. REPORT: Elevated lung volumes and mild patchy rarefaction of the interstitial markings. No focal pulmonary lesion, compelling alveolar consolidation, pleural effusion, pneumothorax. Negative for cardiomegaly. Unremarkable central pulmonary vasculature. Mildly tortuous thoracic aorta. Thoracic degenerative spondylosis. IMPRESSION: #. Stigmata of potential obstructive lung disease. No acute pulmonary or cardiac process evident.
[2018-07-26 15:56] LABS: ABS Basophils 0 10^3/ul (0-0.2); ABS Eosinophils 0.2 10^3/ul (0-0.6); ABS Lymphocytes 2.5 10^3/ul (1.0-4.8); ABS Monocytes 0.9 10^3/ul (0-0.8); ABS Neutrophils 2.8 10^3/ul (1.5-7.7); ABS Nucleated RBC 0 10^3/ul; Eosinophil % 3.1 % (0-6); Hematocrit 48 % (42-52); Hemoglobin 15.9 g/dl (14.0-18.0); Lymphocyte % 39.1 % (25-47); Mean Corpuscular HGB Conc 33 g/dl (31-36); Mean Corpuscular Hemoglobin 30 pg (27-31); Mean Corpuscular Volume 91 fL (80-94); Mean Platelet Volume 8.5 um3 (7.4-10.4); Nucleated Red Blood Cells % 0; Platelet Count 184 10^3/ul (150-450); Red Blood Count 5.23 10^6/ul (4.00-5.40); Red Cell Distribution Width 13 % (10.5-15); White Blood Count 6.5 10^3/ul (3.5-10.8)
[2018-07-26 16:14] LABS: EGFR Non-African American 74.2 (>60)
[2018-07-26] MEDS ORDERED: NS 0.9% 1000 ML* 1,000 ML IV ONE (16:40)
[2018-07-26] MEDS ORDERED: Al Hydrox/Mg Hydrox/Simet LIQ* 30 ML UDC PO PRN (16:52)
[2018-07-26] MEDS ORDERED: Ondansetron INJ* 2 MG/ML VIAL IV PRN (16:52)
[2018-07-26] MEDS ORDERED: Morphine INJ* 2 MG/ML 1 ML SYRINGE (TWO MG - NEW SYRINGE VERSION) IV PRN (16:52)
[2018-07-26] MEDS ORDERED: Acetaminophen TAB* 325 MG PO PRN (16:52)
[2018-07-26] MEDS ORDERED: Iohexol 350* (CONTRAST) 500 ML MDV IV ONE (17:10)
[2018-07-26] MEDS ORDERED: Metoprolol Tartrate IV* 1 MG/ML 5 ML VIAL IV STA (17:16)
[2018-07-26] MEDS ORDERED: traMADol TAB* 50 MG PO PRN (17:16)
[2018-07-26] MEDS ORDERED: Latanoprost 0.005%* 2.5 ml BTL BOTH EYES SCH (18:00)
--- NOTE | 2018-07-26 18:06 | ED ---
Shortness of Breath - HPI Summary HPI Summary: This patient is a 78 year old M presenting to [facility] with a chief complaint of SOB since this AM. The patient ambulates with a cane and a right knee brace from PMHx knee surgery in 2007. Pt became dyspneic while walking up a hill, and denies ever having had similar sx in the past. Pt was sent from s/p an abnl EKG. The patient is currently in PT for bursitis of right hip. - History of Current Complaint Chief Complaint: EDDysrhythmPalp Hx Obtained From: Patient Onset/Duration: Sudden Onset, Lasting Minutes, Resolved Timing: Constant Current Severity: Moderate Dyspnea At: Exertion Alleviating Factors: Spontaneous Resolution Associated Signs & Symptoms: Negative - Allergy/Home Medications Allergies/Adverse Reactions: Allergies Allergy/AdvReac Type Severity Reaction Status Date / Time No Known Allergies Allergy Verified 07/26/18 14:27 PMH/Surg Hx/FS Hx/Imm Hx Endocrine/Hematology History: Denies: Hx Anticoagulant Therapy, Hx Diabetes, Hx Thyroid Disease Cardiovascular History: Reports: Hx Hypertension, Hx Valvular Heart Disease, Other Cardiovascular Problems/Disorders - on xarelto Denies: Hx Pacemaker/ICD Respiratory History: Denies: Hx Asthma, Hx Chronic Obstructive Pulmonary Disease (COPD) GI History: Reports: Other GI Disorders - constipation Denies: Hx Ulcer History: Reports: Hx Kidney Infection Denies: Hx Benign Prostatic Hyperplasia, Hx Dialysis, Hx Renal Disease Musculoskeletal History: Reports: Hx Arthritis, Hx Back Problems - spinal stenosis, Hx Bursitis, Other Musculoskeletal History - right knee infection/ complications after replacement Denies: Hx Gout, Hx Osteoporosis Sensory History: Reports: Hx Contacts or Glasses Denies: Hx Hearing Aid Comment Only: Hx Cataracts - bilaterally removed Opthamlomology History: Reports: Hx Contacts or Glasses Comment Only: Hx Cataracts - bilaterally removed Psychiatric History: Denies: Hx Panic Disorder - Cancer History Hx Chemotherapy: No Hx Radiation Therapy: No - Surgical History Surgery Procedure, [facility] and [facility], needed I[facility]D for infection. left ankle repair after fracture; 2012 orthopedic. LSP SURGERY LUMBAR DECOMPRESSION L2-L5 07/19. cardiac ablation. tonsils. 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 Denies: Hx Clostridium Difficile, Hx Hepatitis, Hx Human Immunodeficiency Virus (HIV), Hx Shingles, Hx Tuberculosis, Hx Known/Suspected VRE, Hx Known/ Suspected VRSA, History Other Infectious Disease, Traveled Outside the [place] in Last 30 Days - Family History Known Family History: Positive: Hypertension - father Negative: Cardiac Disease, Diabetes - Social History Occupation: Retired Alcohol Use: Rare Alcohol Amount: 1 DRINK/MONTH Substance Use Type: Reports: None Smoking Status (MU): Former Smoker Type: Cigarettes Length of Time of Smoking/Using Tobacco: 1-2 PPD X 25 Years Review of Systems Negative: Fever Negative: Blurred Vision, Diplopia Negative: Sore Throat, Ear Ache Negative: Chest Pain Positive: Shortness Of Breath Negative: Abdominal Pain, Other - blood in stool Positive: no symptoms reported. Negative: dysuria Positive: Arthralgia - bursitis in hip Negative: Rash Negative: Headache All Other Systems Reviewed And Are Negative: No Physical Exam - Summary Physical Exam Summary: Appearance: Alert, conversive, nontoxic appearing Skin: Warm, dry, no mottling, no rashes, no contusions HEENT: EOMI, PERRL, moist mucous membranes Neck: No masses on the neck, supple Respiratory: Clear to auscultation, breath sounds present, no rales, no rhonchi , no wheezes Cardiovascular: Tachycardic, pulses are symmetrical in both lower and upper extremities Abdomen: Soft, non-tender Bowel Sounds: Present Musculoskeletal: No CVA tenderness, no obvious deformity, moving all extremities in a grossly normal manner Neurological: A&Ox3, CN II-XII Intact, moving all extremities symmetrically Psychiatric: Normal affect and mood Triage Information Reviewed: Yes Vital Signs On Initial Exam: Initial Vitals Temp Pulse Resp BP Pulse Ox 97.5 F 123 16 109/82 95 07/26/18 14:27 07/26/18 14:27 07/26/18 14:27 07/26/18 14:27 07/26/18 14:27 Vital Signs Reviewed: Yes Diagnostics - Vital Signs Vital Signs Temp Pulse Resp BP Pulse Ox 07/26/18 17:00 119 21 94 07/26/18 16:49 121 28 114/89 94 07/26/18 16:00 122 29 94 07/26/18 15:45 121 132/96 95 07/26/18 14:27 97.5 F 123 16 109/82 95 - Laboratory Lab Results: Lab Results 07/26/18 07/26/18 07/26/18 Range/Units 15:45 15:45 15:45 WBC 6.5 (3.5-10.8) 10^3/ul RBC 5.23 (4.00-5.40) 10^6/ul Hgb 15.9 (14.0-18.0) g/dl Hct 48 (42-52) % MCV 91 (80-94) fL MCH 30 (27-31) pg MCHC 33 (31-36) g/dl RDW 13 (10.5-15) % Plt Count 184 (150-450) 10^3/ul MPV 8.5 (7.4-10.4) um3 Neut % (Auto) 44.0 (38-83) % Lymph % (Auto) 39.1 (25-47) % [place] % (Auto) 13.2 H (0-7) % Eos % (Auto) 3.1 (0-6) % Baso % (Auto) 0.6 (0-2) % Absolute Neuts (auto) 2.8 (1.5-7.7) 10^3/ul Absolute Lymphs (auto) 2.5 (1.0-4.8) 10^3/ul Absolute Monos (auto) 0.9 H (0-0.8) 10^3/ul Absolute Eos (auto) 0.2 (0-0.6) 10^3/ul Absolute Basos (auto) 0 (0-0.2) 10^3/ul Absolute Nucleated RBC 0 10^3/ul Nucleated RBC % 0 D-Dimer, Quantitative (Less Than 230) ng/mL Sodium 140 (135-145) mmol/L Potassium 4.2 (3.5-5.0) mmol/L Chloride 107 (101-111) mmol/L Carbon Dioxide 27 (22-32) mmol/L Anion Gap 6 (2-11) mmol/L BUN 20 (6-24) mg/dL Creatinine 0.98 (0.67-1.17) mg/dL Est GFR ( Amer) 89.7 (>60) Est GFR (Non-Af Amer) 74.2 (>60) BUN/Creatinine Ratio 20.4 H (8-20) Glucose 106 H (70-100) mg/dL Calcium 9.5 (8.6-10.3) mg/dL Magnesium 2.1 (1.9-2.7) mg/dL Total Bilirubin 0.90 (0.2-1.0) mg/dL AST 24 (13-39) U/L ALT 23 (7-52) U/L Alkaline Phosphatase 63 (34-104) U/L Troponin I 0.01 (<0.04) ng/mL B-Natriuretic Peptide 204 H ( - 100) pg/mL Total Protein 7.1 (6.4-8.9) g/dL Albumin 4.2 (3.2-5.2) g/dL Globulin 2.9 (2-4) g/dL Albumin/Globulin Ratio 1.4 (1-3) TSH 0.99 (0.34-5.60) mcIU/mL 07/26/18 Range/Units 15:49 WBC (3.5-10.8) 10^3/ul RBC (4.00-5.40) 10^6/ul Hgb (14.0-18.0) g/dl Hct (42-52) % MCV (80-94) fL MCH (27-31) pg MCHC (31-36) g/dl RDW (10.5-15) % Plt Count (150-450) 10^3/ul MPV (7.4-10.4) um3 Neut % (Auto) (38-83) % Lymph % (Auto) (25-47) % [place] % (Auto) (0-7) % Eos % (Auto) (0-6) % Baso % (Auto) (0-2) % Absolute Neuts (auto) (1.5-7.7) 10^3/ul Absolute Lymphs (auto) (1.0-4.8) 10^3/ul Absolute Monos (auto) (0-0.8) 10^3/ul Absolute Eos (auto) (0-0.6) 10^3/ul Absolute Basos (auto) (0-0.2) 10^3/ul Absolute Nucleated RBC 10^3/ul Nucleated RBC % D-Dimer, Quantitative < 200 (Less Than 230) ng/mL Sodium (135-145) mmol/L Potassium (3.5-5.0) mmol/L Chloride (101-111) mmol/L Carbon Dioxide (22-32) mmol/L Anion Gap (2-11) mmol/L BUN (6-24) mg/dL Creatinine (0.67-1.17) mg/dL Est GFR ( Amer) (>60) Est GFR (Non-Af Amer) (>60) BUN/Creatinine Ratio (8-20) Glucose (70-100) mg/dL Calcium (8.6-10.3) mg/dL Magnesium (1.9-2.7) mg/dL Total Bilirubin (0.2-1.0) mg/dL AST (13-39) U/L ALT (7-52) U/L Alkaline Phosphatase (34-104) U/L Troponin I (<0.04) ng/mL B-Natriuretic Peptide ( - 100) pg/mL Total Protein (6.4-8.9) g/dL Albumin (3.2-5.2) g/dL Globulin (2-4) g/dL Albumin/Globulin Ratio (1-3) TSH (0.34-5.60) mcIU/mL Result Diagrams: 07/26/18 15:45 07/26/18 15:45 Lab Statement: Any lab studies that have been ordered have been reviewed, and results considered in the medical decision making process. - Radiology CXR Xray Interpretation: Positive (See Comments) Radiology Interpretation Completed By: Radiologist - Stigmata of potential obstructive lung disease. No acute pulmonary or cardiac process evident. Dr. Avila has reviewed this report. - EKG 1434 Cardiac Rate: Tachycardia - 123, junctional EKG Rhythm: Sinus Tachycardia - junctional, not sinus ST Segment: Normal Ectopy: None EKG Interpretation: nl QRS, nl QTc, (+) LAD 1739 Cardiac Rate: Bradycardia - 59 EKG Rhythm: Atrial Flutter - 4:[address] Segment: Normal Ectopy: None EKG Interpretation: LAD, nl QTc, prolonged QRS. Course/Dx - Course Course Of Treatment: A 78 y/o M presents to the ED from with a CC of SOB upon exertion. He was walking up a hill when he became dyspneic. A CXR showed stigmata of potential obstructive lung disease. No acute pulmonary or cardiac process evident. An EKG at 1434 showed junctional tachycardia at 123 BPM with LAD. An EKG at 1737 showed aflutter at 59 BPM with a 4:1 HB, LAD, and prolonged QRS. - Diagnoses Provider Diagnoses: Tachycardia, Dyspnea on exertion Discharge - Sign-Out/Discharge Documenting (check all that apply): Patient Departure - admit All imaging exams completed and their final reports reviewed: Yes - Discharge Plan Condition: Stable Disposition: ADMITTED TO [facility] - Attestation Statements Document Initiated by Scribe: Yes Documenting Scribe: Avni Olvera Provider For Whom Scribe is Documenting (Include Credential): Dr. Yessi Avila MD Scribe Attestation: Avni Mckeon, scribed for Dr. Yessi Avila MD on 07/26/18 at 1841.
--- NOTE | 2018-07-26 20:17 | RAD ---
EXAM: CT Angiography Chest With Intravenous Contrast CLINICAL HISTORY: 78 years old, male; Signs and symptoms; Dyspnea; Additional info: Tachycardia, dyspnea, pe study TECHNIQUE: Axial computed tomographic angiography images of the chest with intravenous contrast using pulmonary embolism protocol. All CT scans at this facility use at least one of these dose optimization techniques: automated exposure control; mA and/or kV adjustment per patient size (includes targeted exams where dose is matched to clinical indication); or iterative reconstruction. MIP reconstructed images were created and reviewed. Coronal and sagittal reformatted images were created and reviewed. CONTRAST: 82 mL of OMNIPAQUE 350 administered intravenously. COMPARISON: OT CHEST, PORTABLE X-RIVERA 01/08/2013 12:06 PM FINDINGS: Pulmonary arteries: No pulmonary embolus. No dissection or aneurysm in the chest. Aorta: No acute findings. No thoracic aortic aneurysm. Lungs: No consolidation, effusion or edema. Pleural space: See above. Heart: Nodular and extensive coronary artery calcifications. 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 No significant pericardial effusion. No evidence of RV dysfunction. Bones/joints: See above. Soft tissues: See above. Lymph nodes: Unremarkable. No enlarged lymph nodes. Other findings: No other acute disease seen. As above. IMPRESSION: 1. No pulmonary embolus. No dissection or aneurysm in the chest. 2. No consolidation, effusion or edema. 3. Valvular and extensive coronary artery calcifications. 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 4. No other acute disease seen. As above.
[2018-07-26] MEDS ORDERED: Metoprolol Tartrate IV* 1 MG/ML 5 ML VIAL IV ONE (20:44)
[2018-07-26] MEDS: Ascorbic Acid TAB* 500 MG PO SCH (21:10)
[2018-07-26] MEDS: Metoprolol Tartrate TAB* 25 MG PO SCH (21:10)
--- NOTE | 2018-07-27 01:59 | HP ---
HISTORY AND PHYSICAL: DATE OF ADMISSION: 07/26/18 TIME OF EVALUATION: 05:30 p.m. PRIMARY CARE PROVIDER: Sanjiv Rodriguez MD CHIEF COMPLAINT: Shortness of breath with exertion. HISTORY OF PRESENT ILLNESS: Mr. Ernandez is a 78-year-old gentleman with a chief complaint of shortness of breath since this morning. The patient has had orthopedic problems and uses a cane and a right knee brace. The patient was walking up the hill, which is not unusual for him. He felt dyspneic while walking. He denies feeling this way in the past. The patient went to urgent care and had an abnormal EKG and was sent to the emergency room. The patient is under-going physical therapy at this time and again, this is unusual to feel dyspneic with this level of exertion. On presentation to the hospital, the patient's heart rate was in the 120s with a wide complex junctional rhythm on EKG. The working diagnosis is that this was atrial fibrillation/flutter with a rapid response and an intraventricular conduction delay. He was rate controlled into the 60s with resolution of his shortness of breath and palpitations. The patient is being admitted to the hospitalist service for a rule out of myocardial infarction. He has already had a CTA to rule out pulmonary embolism and indeed there is no PE on this study. The patient's heart seems hypertrophic and that was commented upon by the radiologist. PAST MEDICAL HISTORY: 1. Hypertension. 2. Atrial fibrillation. PAST SURGICAL HISTORY: Includes tonsillectomy, left spine surgery, right total knee arthroplasty. OUTPATIENT MEDICATIONS: 1. Losartan 25 mg by mouth daily. 2. Lopressor 12.5 mg by mouth in the morning. 3. Latanoprost 0.005% 1 drop both eyes every evening. 4. Ascorbic acid 1000 mg by mouth 3 times daily. 5. Multivitamins 1 tablet by mouth daily. 6. Vitamin B complex 1 tablet by mouth daily. 7. [place]-3 fatty acids 1 tablet by mouth 3 times daily. 8. Nocturia pills 1 tab by mouth twice daily. 9. Garlic 1 tab by mouth daily. 10. Bilberry fruit extract 80 mg by mouth 4 times daily. 11. Xarelto 20 mg by mouth in the morning. 12. Ultram 50 mg by mouth every 8 hours. ALLERGIES: No known drug allergies. FAMILY HISTORY: Father passed in his 60s secondary to a ruptured AAA. SOCIAL HISTORY: Quit smoking in the , drinks alcohol infrequently and denies any recreational drug use. 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 He is full code. REVIEW OF SYSTEMS: A review of 14 systems was negative except for the pertinent positives mentioned above with emphasis on his musculoskeletal complaints. PHYSICAL EXAMINATION ON ADMISSION GENERAL APPEARANCE: Elderly man, appears stated age, in no apparent distress. He is awake, alert and oriented x3, answers questions appropriately. VITAL SIGNS: Temperature 97.9 degrees Fahrenheit, blood pressure 120s to 130s/ 70s, respirations high teens to 20 and unlabored, oxygen saturation mid 90s on room air. HEENT: Oropharynx is clear. Mucous membranes are moist. NECK: Supple. No elevated JVD. CHEST: Clear breath sounds anteriorly, posteriorly. HEART: Rapid rhythm during my exam in the emergency room. No murmurs appreciated. ABDOMEN: Soft and nontender. SKIN: Dry and intact. EXTREMITIES: Without clubbing, cyanosis, or edema. Right knee brace is noted. On his musculoskeletal exam, I did not ambulate the patient. NEUROLOGIC: He is intact with no sensory or motor component deficiencies. LYMPH: No adenopathy appreciated. PSYCH: Normal affect. No acute anxiety or depression and good medical recall. ADMISSION DATA: White blood cell count 6.5, hemoglobin 15.9, platelets 184. D- dimer less than 200. Blood chemistry significant only except for a modestly elevated BUN to creatinine ratio at 20.4 and a glucose of 106. His BNP is 204; two sets of troponin are normal at the time of this dictation, the second set was not attained at that point of his observation status. His TSH is normal at 0.99. His EKG is abnormal initially with tachycardia and junctional rhythm with an unclear baseline, likely atrial fibrillation with a misinterpretation by the electronic read. On telemetry, his rate decreased into the 60s with beta- julian (IV metoprolol). IMPRESSION: Mr. Ernandez is a 78-year-old gentleman with a history of atrial fibrillation now with tachycardia and a what is being read by the EKG interpretation as a junctional rhythm, but likely EKG with interventricular conduction delay. He is responded very favorably to 1 dose of beta-julian and then became more tachycardic after his CTA. I am going to give him one additional dose of IV metoprolol. His beta-blockers were decreased in the outpatient setting potentially secondary to his sensitivity to them as evidenced by his decrease in heart rate to the 5 mg of IV metoprolol. The patient will have an additional troponin checked. He is asymptomatic at this point. He should be re-ambulated in the morning and potentially his beta- julian dose reconsidered to avoid bradycardia, but enough to achieve better rate control than the 12.5 mg of metoprolol once daily he is taking. Other meds will be continued as available. He has several vitamins and supplements that are not in formulary and they can be held while he is in the hospital. No evidence of fluid overload at this point and again, no evidence of pulmonary embolism on the CTA. TIME SPENT: Total time taken to admit Mr. Ernandez was 65 minutes; greater than half the time spent at the bedside going over the history and physical examination as above. [id number]/[facility] #: [id number] MTDD
[2018-07-27 06:24] LABS: ABS Basophils 0 10^3/ul (0-0.2); ABS Eosinophils 0.2 10^3/ul (0-0.6); ABS Lymphocytes 2.5 10^3/ul (1.0-4.8); ABS Monocytes 0.9 10^3/ul (0-0.8); ABS Neutrophils 3.5 10^3/ul (1.5-7.7); ABS Nucleated RBC 0 10^3/ul; Eosinophil % 3.1 % (0-6); Hematocrit 44 % (42-52); Hemoglobin 14.8 g/dl (14.0-18.0); Lymphocyte % 35.3 % (25-47); Mean Corpuscular HGB Conc 34 g/dl (31-36); Mean Corpuscular Hemoglobin 30 pg (27-31); Mean Corpuscular Volume 90 fL (80-94); Mean Platelet Volume 8.8 um3 (7.4-10.4); Nucleated Red Blood Cells % 0.1; Platelet Count 158 10^3/ul (150-450); Red Blood Count 4.89 10^6/ul (4.00-5.40); Red Cell Distribution Width 13 % (10.5-15); White Blood Count 7.2 10^3/ul (3.5-10.8)
[2018-07-27 06:43] LABS: EGFR Non-African American 76.9 (>60)
[2018-07-27] MEDS: Ascorbic Acid TAB* 500 MG PO SCH (08:44)
[2018-07-27] MEDS: Metoprolol Tartrate TAB* 25 MG PO SCH (08:45)
[2018-07-27] MEDS ORDERED: Metoprolol Tartrate TAB* 25 MG PO SCH (09:00)
[2018-07-27] MEDS ORDERED: Losartan TAB* 25 MG PO SCH (09:00)
[2018-07-27] MEDS ORDERED: Rivaroxaban TAB(*) 20 MG TAB PO SCH (09:00)
--- NOTE | 2018-07-27 10:24 | DCNOTE ---
Discharge Progress Note: Primary Diagnosis: atrial flutter w/ rapid ventricular response Secondary Diagnoses: intraventricular conduction delay hypertension glaucoma osteoarthritis knee RT h/o MRSA Consultants: none Procedures: none Complications: none Pertinent Lab/Radiology testing: Laboratory Tests 07/26/18 07/26/18 07/26/18 15:45 15:45 15:49 D-Dimer, Quantitative < 200 Troponin I 0.01 B-Natriuretic Peptide 204 H TSH 0.99 07/26/18 07/27/18 19:16 00:03 D-Dimer, Quantitative Troponin I 0.00 0.01 B-Natriuretic Peptide TSH EKG: on admission : a-flutter, 2:1 block, IVCD repeat EKG: a-flutter, 4:1 block and 3:1 block CTA chest: negative Tests pending upon discharge: none Physical Exam: Selected Entries 07/27/18 07/27/18 08:04 08:43 Temperature 36.5 C Pulse Rate 59 Respiratory 16 Rate Blood Pressure 160/99 117/85 (mmHg) O2 Sat by Pulse 97 Oximetry Alert, no distress Neck: no carotid bruits Chest: clear, no rales Heart; RRR, no murmur
[2018-07-27 11:21] VITALS: BP 109/55
--- NOTE | 2018-07-28 06:38 | DS ---
CC: Dr. Rodriguez.* DISCHARGE SUMMARY: DATE OF ADMISSION: 07/26/18 DATE OF DISCHARGE: 07/27/18 PRIMARY DIAGNOSIS: Atrial flutter with rapid ventricular response. SECONDARY DIAGNOSES: 1. Intraventricular conduction delay on EKG. 2. Hypertension 3. Glaucoma. 4. Osteoarthritis, right knee. 5. History of MRSA. MEDICATIONS ON DISCHARGE: 1. Vitamin C 1000 mg p.o. t.i.d. 2. Bilberry extract four times a day. 3. Garlic one tab daily. 4. Xalatan one drop both eyes q.p.m. 5. Losartan 25 mg p.o. q.a.m. 6. Fish oil one tab p.o. t.i.d. 7. Xarelto 20 mg p.o. q.a.m. 8. Tramadol 50 mg p.o. q.8 hours p.r.n. pain. 9. Vitamin B complex one tab daily. 10. Multivitamin one tab daily. 11. Metoprolol tartrate 25 mg p.o. b.i.d. HOSPITAL COURSE: The patient was admitted through emergency department with symptoms of shortness of breath and palpitations. The patient was as found to be in atrial flutter with heart rates up to 120. According to the patient, the patient's beta julian had been titrated down as an outpatient. Because of the rapid ventricular response, the patient had other investigations including a D- dimer, which was negative and CT angiogram of chest, which was negative for pulmonary emboli. Troponins were negative on three occasions. BNP was slightly elevated at 204. TSH was 0.99. The EKG on admission showed atrial flutter with 2:1 block and intraventricular conduction delay, wide complex QRS. Repeat EKG later in the hospital stay showed atrial flutter with variable 4:1 and 3:1 block. The patient's beta julian was titrated upwards and he tolerated this with a discharge blood pressure 117/85. His heart rate was 59 on discharge. The patient had no complaints and ambulating in the hallway, ready to go home. DISPOSITION: Home. He should see his primary care doctor within one week. ACTIVITY: As tolerated. DIET: Low salt. [id number]/[facility] #: [id number] [facility]
== END 2018-07-27 12:45 | disposition home or self-care (01) ==
LOC: ED 14:10 → MEDTELE 17:13
PROVIDERS: ADMIT Internal Medicine; ATTEND Internal Medicine
DX: I48.92 Unspecified atrial flutter (principal); I45.89 Other specified conduction disorders; I10 Essential (primary) hypertension; H40.9 Unspecified glaucoma; M17.11 Unilateral primary osteoarthritis, right knee; Z86.14 Personal history of Methicillin resistant Staphylococcus aureus infection; Z79.899 Other long term (current) drug therapy; Z79.01 Long term (current) use of anticoagulants; R06.02 Shortness of breath; I48.91 Unspecified atrial fibrillation; Z87.891 Personal history of nicotine dependence; I44.30 Unspecified atrioventricular block; I44.4 Left anterior fascicular block
CPT/HCPCS: 36415; 71046; 71275; 80048; 80053; 83735; 83880; 84443; 84484; 85025; 85379; 87641; 93005; 96361; 96374; 96376; 99283; A9270-GY; G0378; J3490; Q9967

== ENCOUNTER 2018-12-12 12:22 | Emergency (ER) | payer MEDICARE, OTHER ==
[2018-12-12 14:01] VITALS: BP 128/65
--- NOTE | 2018-12-12 14:16 | UC ---
General HPI - HPI Summary HPI Summary: Woke up and felt like a ball was in the back of his throat. Is having a hard time swallowing. 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 Able to only drink a half cup of water. Tried to get in to ENT but no apt available for another two weeks with Dr. Villegas. No lip or tongue swelling. No cough or SOB. No fever. No URI illness. States he may have some post nasal drip. No CP or SOB. Denies any changes in his medications. Med: reviewed. - History of Current Complaint Chief Complaint: UCRespiratory Stated Complaint: ORAL CONCERN/SWELLING Time Seen by Provider: 12/12/18 14:05 Pain Intensity: 9 - Allergy/Home Medications Allergies/Adverse Reactions: Allergies Allergy/AdvReac Type Severity Reaction Status Date / Time No Known Allergies Allergy Verified 12/12/18 13:49 PMH/Surg Hx/FS Hx/Imm Hx Previously Healthy: No Cardiovascular History: Hypertension, Atrial Fibrillation Other History Of: Negative For: Anticoagulant Therapy - Surgical History Surgical History: Yes Surgery Procedure, Year, and Place: [facility] rt knee replacement,2004, needed I+D for infection. left ankle repair after fracture; 2013 orthopedic. [facility] SURGERY LUMBAR DECOMPRESSION L2-L5 07/19. cardiac ablation. tonsils. bilateral cataracts - Family History Known Family History: Positive: Hypertension - father Negative: Cardiac Disease, Diabetes - Social History Alcohol Use: Rare Alcohol Amount: 1 DRINK/MONTH Substance Use Type: None Smoking Status (MU): Former Smoker Type: Cigarettes Length of Time of Smoking/Using Tobacco: 1-2 PPD X 25 Years When Did the Patient Quit Smoking/Using Tobacco: 1976 - Immunization History Most Recent Influenza Vaccination: Fall 2016 Most Recent Tetanus Shot: up to date Most Recent Pneumonia Vaccination: in the past Review of Systems All Other Systems Reviewed And Are Negative: Yes ENT: Positive: Sore Throat Physical Exam Triage Information Reviewed: Yes Appearance: Well-Appearing Vital Signs: Initial Vital Signs Temp 97.7 F 12/12/18 13:51 Pulse 81 12/12/18 13:51 Resp 18 12/12/18 13:51 BP 128/65 12/12/18 13:51 Pulse Ox 96 12/12/18 13:51 Vital Signs Reviewed: Yes ENT: Positive: Pharyngeal erythema, TMs normal Neck: Positive: Supple, Nontender Respiratory: Positive: Lungs clear, Normal breath sounds Cardiovascular: Positive: RRR, No Murmur Course/Dx - Course Course Of Treatment: This is a 78 yr old with sore throat. Rapid strep: Positive. Plan. Start amoxicillin as prescribed (liquid so that he is able to swallow it). Continue to drink plenty of fluids. If symptoms persist or worsen keep apt with ENT on 12/30. If you are not able to tolerate fluids, then return to urgent care or the ER - Diagnoses Provider Diagnosis: Strep throat Discharge - Sign-Out/Discharge Documenting (check all that apply): Patient Departure All imaging exams completed and their final reports reviewed: No Studies - Discharge Plan Condition: Good Disposition: HOME Prescriptions: Amoxicillin [Amoxicillin 250 MG/5 ML] 500 mg PO BID #1 bottle Patient Education Materials: Strep Throat in Children (ED) Referrals: Sanjiv Rodriguez MD [Primary Care Provider] - Additional Instructions: Start amoxicillin as prescribed Continue to drink plenty of fluids If symptoms persist or worsen keep apt with ENT on 12/30 If you are not able to tolerate fluids, then return to urgent care or the ER - Billing Disposition and Condition Condition: GOOD Disposition: Home
== END 2018-12-12 14:34 | disposition home or self-care (01) ==
LOC: UCCORT 12:22
DX: J02.9 Acute pharyngitis, unspecified (principal); I10 Essential (primary) hypertension; Z87.891 Personal history of nicotine dependence
CPT/HCPCS: 87651; 99212; G0463